=== PATIENT | female | born 1960 | race Two or more races ===

== ENCOUNTER 2016-07-16 18:14 | Emergency (ER) | payer MEDICAID ==
[~2016-07-16] VITALS: Ht 157.5 cm; Wt 91.6 kg
[2016-07-16 18:20] VITALS: BP 156/57
[2016-07-16 20:12] LABS: Magnesium 2.1 mg/dL (1.6-2.6)
== END 2016-07-16 20:58 | disposition left against medical advice (07) ==
LOC: ER 18:20
DX: R94.31 Abnormal electrocardiogram [ECG] [EKG] (principal); Z53.21 Procedure and treatment not carried out due to patient leaving prior to being seen by health care provider
CPT/HCPCS: 36415; 83735; 84484; 93005

== ENCOUNTER 2016-09-13 20:42 | Emergency (ER) | payer MEDICAID ==
[~2016-09-13] VITALS: Ht 157.5 cm; Wt 90.7 kg
[2016-09-13 20:54] VITALS: BP 155/78
== END 2016-09-13 23:21 | disposition left against medical advice (07) ==
LOC: ER 20:46
DX: R21 Rash and other nonspecific skin eruption (principal); Z53.21 Procedure and treatment not carried out due to patient leaving prior to being seen by health care provider

== ENCOUNTER 2021-01-14 14:52 | Emergency (ER) | payer MEDICAID ==
[~2021-01-14] VITALS: Ht 157.5 cm; Wt 88.0 kg
[~2021-01-14 14:52] MED LIST: CHOL20007 PO; DICL75TA2 PO; ESOM40CA39 PO; FERR-20 PO; LISI2.5T47 PO; MULT-927 PO
[2021-01-14 18:06] VITALS: BP 140/76
== END 2021-01-14 18:35 | disposition home or self-care (01) ==
LOC: ER 14:52
DX: S82.832A Other fracture of upper and lower end of left fibula, initial encounter for closed fracture (principal); I10 Essential (primary) hypertension; E11.9 Type 2 diabetes mellitus without complications; Z90.49 Acquired absence of other specified parts of digestive tract; Z90.710 Acquired absence of both cervix and uterus; Z79.899 Other long term (current) drug therapy; X50.1XXA Overexertion from prolonged static or awkward postures, initial encounter; Y93.89 Activity, other specified; Y92.89 Other specified places as the place of occurrence of the external cause; Y99.8 Other external cause status
CPT/HCPCS: 29515; 73600

== ENCOUNTER 2021-07-07 17:41 | Emergency (ER) | payer MEDICAID ==
[~2021-07-07] VITALS: Ht 157.5 cm; Wt 90.7 kg
[2021-07-07 19:35] LABS: Basophils # (auto) 0 10 ^3/uL (0-0.2); Basophils % (auto) 0.6 % (0.0-2.0); Eosinophils # (auto) 0.3 10 ^3/uL (0-0.8); Eosinophils % (auto) 3.3 % (0.0-7.0); Hematocrit 37.9 % (36.0-46.0); Hemoglobin 13.2 g/dL (12.2-16.2); Lymphocytes # (auto) 2.5 10 ^3/uL (0.4-5.4); Mean Corpuscular Hemoglobin 33.2 pg (28.0-32.0); Mean Corpuscular Hgb Conc. 34.9 g/dL (32.0-36.0); Monocytes # (auto) 0.4 10 ^3/uL (0-1.3); Monocytes % (auto) 5.5 % (0.0-12.0); Neutrophils # (auto) 4.5 10 ^3/uL (1.6-8.6); Neutrophils % (auto) 58.6 % (37.0-80.0); Nucleated Red Blood Cells % 0.1 %; Red Blood Cells 3.99 10^6/uL (4.0-5.20); Red Cell Distribution Width 13.5 % (11.8-14.3); White Blood Cell 7.7 10^3/uL (4.4-10.8)
[2021-07-07 19:57] LABS: Albumin 3.4 g/dL (3.4-5.0); Potassium 3.4 mmol/L (3.5-5.1)
[2021-07-07 20:01] LABS: BUN/Creatinine Ratio 18.3; Bilirubin, Total 0.5 mg/dL (0.2-1.0); Total Protein 7.4 g/dL (6.4-8.2)
[2021-07-07] MEDS ORDERED: AZIT1POW PO (21:38)
[2021-07-07] MEDS ORDERED: METH4PAK PO (21:38)
[2021-07-07 22:46] VITALS: BP 122/71
[2021-07-08 00:08] LABS: Urine Specific Gravity 1.034 (1.001-1.035)
[2021-07-08 00:09] LABS: Urine Blood Normal /uL (Negative)
[2021-07-08 00:12] LABS: Urine Bacteria NONE SEEN /hpf (None Seen); Urine WBC 1 /hpf (0 - 5)
== END 2021-07-07 22:46 | disposition home or self-care (01) ==
LOC: ER 17:41
DX: J20.9 Acute bronchitis, unspecified (principal); E11.9 Type 2 diabetes mellitus without complications; I10 Essential (primary) hypertension; Z90.49 Acquired absence of other specified parts of digestive tract; Z90.710 Acquired absence of both cervix and uterus; Z20.822 Contact with and (suspected) exposure to COVID-19
CPT/HCPCS: 36415; 71046; 80053; 81001; 83880; 84484; 85025; 93005

== ENCOUNTER 2021-08-10 20:21 | Emergency (ER) | payer MEDICAID ==
[~2021-08-10] VITALS: Ht 157.5 cm; Wt 90.7 kg
[2021-08-10 20:21] VITALS: BP 127/79
[~2021-08-10 20:21] MED LIST changes: +AZIT1POW PO; +METH4PAK PO
[2021-08-10 22:16] LABS: Urine Bacteria NONE SEEN /hpf (None Seen); Urine Blood 3+ /uL (Negative); Urine Specific Gravity 1.023 (1.001-1.035); Urine WBC 413 /hpf (0 - 5)
== END 2021-08-12 02:32 | disposition left against medical advice (07) ==
LOC: ER 20:21
DX: R30.0 Dysuria (principal); Z53.21 Procedure and treatment not carried out due to patient leaving prior to being seen by health care provider
CPT/HCPCS: 81001

== ENCOUNTER 2021-08-22 09:39 | Inpatient (IN) | payer MEDICAID ==
[~2021-08-22] VITALS: Ht 152.4 cm; Wt 87.8 kg
[2021-08-22 10:44] LABS: Basophils # (auto) 0 10 ^3/uL (0-0.2); Basophils % (auto) 0.5 % (0.0-2.0); Eosinophils # (auto) 0.1 10 ^3/uL (0-0.8); Eosinophils % (auto) 1.9 % (0.0-7.0); Hematocrit 41.2 % (36.0-46.0); Lymphocytes # (auto) 2.1 10 ^3/uL (0.4-5.4); Lymphocytes % (auto) 33.7 % (10.0-50.0); Mean Corpuscular Hemoglobin 32.1 pg (28.0-32.0); Mean Corpuscular Volume 94.6 fL (80.0-100.0); Monocytes # (auto) 0.4 10 ^3/uL (0-1.3); Monocytes % (auto) 6.3 % (0.0-12.0); Neutrophils # (auto) 3.6 10 ^3/uL (1.6-8.6); Neutrophils % (auto) 57.6 % (37.0-80.0); Nucleated Red Blood Cells % 0.1 %; Red Blood Cells 4.36 10^6/uL (4.0-5.20); Red Cell Distribution Width 13.6 % (11.8-14.3); White Blood Cell 6.3 10^3/uL (4.4-10.8)
[2021-08-22 10:56] LABS: Albumin 3.9 g/dL (3.4-5.0); BUN/Creatinine Ratio 16.9; Calcium 8.7 mg/dL (8.5-10.1); Magnesium 2.2 mg/dL (1.6-2.6); Potassium 3.6 mmol/L (3.5-5.1)
[2021-08-22 10:58] LABS: Bilirubin, Total 0.5 mg/dL (0.2-1.0); Total Protein 7.8 g/dL (6.4-8.2)
[2021-08-22] MEDS: ASPirin 81 mg TAB PO ONE ×2 (11:45→12:06)
[2021-08-22] MEDS ORDERED: ACETAMINOPHEN 325 MG TAB PO PRN (13:15)
[2021-08-22] MEDS ORDERED: PANTOPRAZOLE 40 MG TAB PO ONE (13:15)
[2021-08-22] MEDS ORDERED: NITROGLYCERIN 0.4 MG SL TAB SL PRN (13:15)
[2021-08-22] MEDS ORDERED: NAPROXEN 500 MG TAB PO ONE (13:15)
[2021-08-22] MEDS ORDERED: DOCUSATE SOD 100 MG CAP PO PRN (13:15)
[2021-08-22 13:26] LABS: Cholesterol 161 mg/dL (< 200)
[2021-08-22 13:28] LABS: HDL Cholesterol 38 mg/dL (40-59); LDL Cholesterol 102 mg/dL (< 100); Triglycerides 217 mg/dL (< 150)
[2021-08-22] MEDS ORDERED: HYDROcodone-ACET 5/325MG TAB PO ONE (13:30)
[2021-08-22] MEDS: HYDROcodone-ACET 5/325MG TAB PO PRN ×2 (15:52→20:27)
[2021-08-22] MEDS ORDERED: ATOR10TA PO (18:32)
[2021-08-22] MEDS ORDERED: METF-370 PO (18:32)
[2021-08-22] MEDS: FERROUS SULFATE 325mg EC TAB PO SCH (18:39)
[2021-08-22 22:00] VITALS: BP 117/56
[2021-08-23] VITALS (8 sets, daily range): BP systolic 107–144; BP diastolic 53–80
[2021-08-23] MEDS: HYDROcodone-ACET 5/325MG TAB PO PRN ×3 (01:47→12:50)
[2021-08-23] MEDS: MULTIPLE VITAMINS W/ MINERALS TAB PO SCH (09:39)
[2021-08-23] MEDS: LISINOPRIL 5 MG TAB PO SCH (09:42)
[2021-08-23] MEDS: CHOLECALCIFEROL (VITD3) 2,000 UNIT CAP/TAB PO SCH (09:43)
[2021-08-23] MEDS: FERROUS SULFATE 325mg EC TAB PO SCH ×2 (09:43→19:02)
[2021-08-23] MEDS ORDERED: ADENOSINE 58 MG in GIVE UN-DILUTED 0 ML IV ONE (10:15)
[2021-08-23] MEDS ORDERED: EMPA1TAB3 PO (10:48)
[2021-08-23] MEDS: MORPHINE SULFATE INJ 2 MG/ml SYRG IV PRN ×2 (13:01→22:00)
[2021-08-23] MEDS: HYDROcodone-ACET 10/325MG TAB PO PRN (17:24)
[2021-08-23] MEDS: ONDANSETRON HCL 4 MG/2 ML VIAL IV PRN (20:18)
[2021-08-24] MEDS: HYDROcodone-ACET 10/325MG TAB PO PRN ×3 (01:54→23:35)
[2021-08-24 05:00] VITALS: BP 94/51
[2021-08-24] MEDS: HYDROcodone-ACET 5/325MG TAB PO PRN (06:32)
[2021-08-24 08:00] VITALS: BP_SYST 101; BP_SYST 106; BP_DIAS 60
[2021-08-24] MEDS: FERROUS SULFATE 325mg EC TAB PO SCH (08:24)
[2021-08-24] MEDS: MULTIPLE VITAMINS W/ MINERALS TAB PO SCH (09:42)
[2021-08-24] MEDS: CHOLECALCIFEROL (VITD3) 2,000 UNIT CAP/TAB PO SCH (09:42)
[2021-08-24] MEDS: LISINOPRIL 5 MG TAB PO SCH (09:43)
[2021-08-24] MEDS: MORPHINE SULFATE INJ 2 MG/ml SYRG IV PRN (10:39)
[2021-08-24 11:59] VITALS: BP 116/53
[2021-08-24] MEDS: ONDANSETRON HCL 4 MG/2 ML VIAL IV PRN (12:39)
[2021-08-24] MEDS ORDERED: PANTOPRAZOLE 40 MG TAB PO ONE (13:15)
[2021-08-24] MEDS ORDERED: SUCRALFATE 1 GM/10 ML ORAL SUSP PO ONE (13:15)
[2021-08-24] MEDS ORDERED: DOCUSATE SOD 100 MG CAP PO ONE (13:45)
[2021-08-24 16:00] VITALS: BP 117/66
[2021-08-24] MEDS: DOCUSATE SOD 100 MG CAP PO SCH (20:56)
[2021-08-24] MEDS: LACTULOSE 20Gm/30ML SOLN PO SCH (20:56)
[2021-08-24 22:00] VITALS: BP 103/54
[2021-08-25 05:00] VITALS: BP 97/53
[2021-08-25] MEDS: HYDROcodone-ACET 10/325MG TAB PO PRN ×2 (06:04→20:22)
[2021-08-25 08:51] VITALS: BP 97/47
[2021-08-25] MEDS: LACTULOSE 20Gm/30ML SOLN PO SCH ×2 (09:06→20:21)
[2021-08-25] MEDS: DOCUSATE SOD 100 MG CAP PO SCH ×2 (09:07→20:22)
[2021-08-25] MEDS: MULTIPLE VITAMINS W/ MINERALS TAB PO SCH (09:07)
[2021-08-25] MEDS: CHOLECALCIFEROL (VITD3) 2,000 UNIT CAP/TAB PO SCH (09:07)
[2021-08-25] MEDS: PANTOPRAZOLE 40 MG TAB PO SCH (09:07)
[2021-08-25] MEDS: LISINOPRIL 5 MG TAB PO SCH (09:10)
[2021-08-25] MEDS ORDERED: KETOROLAC TROMETH 30 MG/ML 1ML VIAL IV ONE (12:15)
[2021-08-25 13:00] VITALS: BP 122/67
[2021-08-25 16:43] LABS: BUN/Creatinine Ratio 25.4; Calcium 9.5 mg/dL (8.5-10.1)
[2021-08-25 17:00] VITALS: BP 126/72
[2021-08-25] MEDS ORDERED: IOHEXOL 350 MG/ML 100ML IJ ONE (20:16)
[2021-08-25 22:00] VITALS: BP 138/60
[2021-08-26] MEDS: HYDROcodone-ACET 10/325MG TAB PO PRN ×2 (02:12→08:17)
[2021-08-26 04:58] LABS: Basophils # (auto) 0 10 ^3/uL (0-0.2); Basophils % (auto) 0.3 % (0.0-2.0); Eosinophils # (auto) 0.2 10 ^3/uL (0-0.8); Hematocrit 38.6 % (36.0-46.0); Hemoglobin 13.5 g/dL (12.2-16.2); Lymphocytes # (auto) 2.9 10 ^3/uL (0.4-5.4); Lymphocytes % (auto) 34.1 % (10.0-50.0); Mean Corpuscular Hemoglobin 33.5 pg (28.0-32.0); Mean Corpuscular Hgb Conc. 35.1 g/dL (32.0-36.0); Mean Corpuscular Volume 95.3 fL (80.0-100.0); Monocytes # (auto) 0.4 10 ^3/uL (0-1.3); Monocytes % (auto) 4.7 % (0.0-12.0); Neutrophils % (auto) 58.9 % (37.0-80.0); Nucleated Red Blood Cells % 0.1 %; Red Blood Cells 4.05 10^6/uL (4.0-5.20); Red Cell Distribution Width 13.8 % (11.8-14.3); White Blood Cell 8.5 10^3/uL (4.4-10.8)
[2021-08-26 05:00] VITALS: BP 114/56
[2021-08-26 05:15] LABS: Potassium 3.1 mmol/L (3.5-5.1)
[2021-08-26 05:22] LABS: Albumin 3.4 g/dL (3.4-5.0); Bilirubin, Total 0.5 mg/dL (0.2-1.0); Calcium 8.4 mg/dL (8.5-10.1); Total Protein 7.1 g/dL (6.4-8.2)
[2021-08-26 08:58] VITALS: BP 92/49
[2021-08-26] MEDS: CHOLECALCIFEROL (VITD3) 2,000 UNIT CAP/TAB PO SCH (09:27)
[2021-08-26] MEDS: DOCUSATE SOD 100 MG CAP PO SCH (09:27)
[2021-08-26] MEDS: LACTULOSE 20Gm/30ML SOLN PO SCH (09:27)
[2021-08-26] MEDS: PANTOPRAZOLE 40 MG TAB PO SCH (09:27)
[2021-08-26] MEDS: MULTIPLE VITAMINS W/ MINERALS TAB PO SCH (09:27)
[2021-08-26] MEDS: LISINOPRIL 5 MG TAB PO SCH (09:28)
[2021-08-26] MEDS ORDERED: KETOROLAC TROMETH 30 MG/ML 1ML VIAL IV ONE (10:45)
[2021-08-26] MEDS ORDERED: KETO10TA PO (10:48)
[2021-08-26] MEDS ORDERED: POTASSIUM CHL 20 Meq TABLET PO ONE (11:45)
[2021-08-26 11:46] VITALS: BP 92/49
[2021-08-26 12:40] VITALS: BP 119/55
== END 2021-08-26 13:45 | disposition home or self-care (01) | DRG 203 ==
LOC: ER 09:39 → EDBD 09:39 → TELE 13:13 → TELE-CENTR 17:06
PROVIDERS: ADMIT Internal Medicine; ATTEND Internal Medicine
DX: M94.0 Chondrocostal junction syndrome [Tietze] (principal); E11.9 Type 2 diabetes mellitus without complications; E66.9 Obesity, unspecified; M79.602 Pain in left arm; Z20.822 Contact with and (suspected) exposure to COVID-19; I10 Essential (primary) hypertension; R00.1 Bradycardia, unspecified; Z87.891 Personal history of nicotine dependence; Z90.49 Acquired absence of other specified parts of digestive tract; Z90.710 Acquired absence of both cervix and uterus; Z68.37 Body mass index [BMI] 37.0-37.9, adult; Z80.0 Family history of malignant neoplasm of digestive organs; Z79.84 Long term (current) use of oral hypoglycemic drugs
CPT/HCPCS: 36415; 71045; 71275; 72125; 80048; 80053; 80061; 83735; 84443; 84484; 85025; 85379; 93005; 93306; G0378; J0153; J1885; J2405

== ENCOUNTER 2023-05-05 12:50 | Inpatient (IN) | payer MEDICAID ==
[~2023-05-05] VITALS: Ht 157.5 cm; Wt 98.5 kg
[~2023-05-05 12:50] MED LIST changes: +ATOR10TA PO; -AZIT1POW PO; -DICL75TA2 PO; +EMPA1TAB3 PO; -FERR-20 PO; +KETO10TA PO; +METF-370 PO; -METH4PAK PO; -MULT-927 PO
[2023-05-05 13:54] LABS: Basophils # (auto) 0 10 ^3/uL (0-0.2); Basophils % (auto) 0.2 % (0.0-2.0); Eosinophils # (auto) 0 10 ^3/uL (0-0.8); Eosinophils % (auto) 0.1 % (0.0-7.0); Hematocrit 42.9 % (36.0-46.0); Hemoglobin 14.6 g/dL (12.2-16.2); Lymphocytes # (auto) 1.2 10 ^3/uL (0.4-5.4); Lymphocytes % (auto) 7.6 % (10.0-50.0); Mean Corpuscular Hemoglobin 32.3 pg (28.0-32.0); Mean Corpuscular Volume 94.9 fL (80.0-100.0); Monocytes # (auto) 0.6 10 ^3/uL (0-1.3); Monocytes % (auto) 3.6 % (0.0-12.0); Neutrophils # (auto) 14.5 10 ^3/uL (1.6-8.6); Neutrophils % (auto) 88.5 % (37.0-80.0); Nucleated Red Blood Cells % 0.1 %; Red Blood Cells 4.52 10^6/uL (4.0-5.20); Red Cell Distribution Width 13.8 % (11.8-14.3); White Blood Cell 16.4 10^3/uL (4.4-10.8)
[2023-05-05 14:02] LABS: Alanine Aminotransferase 32 U/L (7-40); Alkaline Phosphatase 86 U/L (46-116)
[2023-05-05 14:03] LABS: Albumin 4.6 g/dL (3.2-4.8); Anion Gap 8 (5-15); Aspartate Aminotransferase 28 U/L (13-40); BUN/Creatinine Ratio 19.4 (10.0-20.0); Bilirubin, Total 1.4 mg/dL (0.2-1.0); Blood Urea Nitrogen 13 mg/dL (9-23); Calcium 9.3 mg/dL (8.5-10.1); Carbon Dioxide 24 mmol/L (20-30); Chloride 105 mmol/L (98-107); Glucose 123 mg/dL (74-106); Potassium 3.8 mmol/L (3.5-5.1); Sodium 137 mmol/L (136-145); Total Protein 7.4 g/dL (5.7-8.2)
[2023-05-05] MEDS: IPRATROPIUM BROM 0.5 MG/2.5ML INH SOL NEB ONE (15:26)
[2023-05-05] MEDS: ALBUTEROL SULF 2.5 MG/0.5ML(0.5%) NEB SOLN NEB ONE (15:27)
[2023-05-05 15:28] LABS: Base Excess 0.3 mmol/L (-2.0-2.0)
[2023-05-05 15:28] LABS: COVID19 ANTIGEN SOFIA FIA NEGATIVE (NEGATIVE); Rapid Influenza A Negative (Negative); Rapid Influenza B Negative (Negative)
[2023-05-05] MEDS: cefTRIAXone 1GM/50ML D5W 50 ML IV ONE (17:01)
[2023-05-05] MEDS: ACETAMINOPHEN 325 MG TAB PO ONE (17:01)
[2023-05-05] MEDS: SODIUM CHLORIDE 0.9% 1,000 ML IV ONE (17:01)
[2023-05-05] MEDS ORDERED: ONDANSETRON HCL 4 MG/2 ML VIAL IV PRN (17:45)
[2023-05-05] MEDS ORDERED: DEXTROSE (50%) 50ML SYRG IV PRN (17:45)
[2023-05-05] MEDS ORDERED: NITROGLYCERIN 0.4 MG SL TAB SL PRN (17:45)
[2023-05-05] MEDS ORDERED: cefTRIAXone 1GM/50ML D5W 50 ML IV ONE (17:45)
[2023-05-05] MEDS: SODIUM CHLORIDE 0.9% 1,000 ML IV SCH (18:41)
[2023-05-05 19:19] LABS: INR 1.23 (0.9-1.15); Prothrombin Time 12.7 sec (9.3-11.8)
[2023-05-05] MEDS: IOHEXOL 350 MG/ML 100ML IJ ONE (21:36)
[2023-05-05] MEDS: ENOXAPARIN SOD 100 MG/1 ML SYRINGE SC SCH (21:36)
[2023-05-05] MEDS: ACETAMINOPHEN 325 MG TAB PO PRN (21:37)
[2023-05-05] MEDS: METOPROLOL TARTRATE 25 MG TAB PO SCH (23:28)
[2023-05-06] VITALS (12 sets, daily range): BP systolic 99–121; BP diastolic 54–69; PULSE 65–88; RESP 16–22; TEMP 97.8–99.5; O2SAT 95–100
[2023-05-06 02:00] LABS: Basophils # (auto) 0.1 10 ^3/uL (0-0.2); Basophils % (auto) 0.3 % (0.0-2.0); Eosinophils # (auto) 0 10 ^3/uL (0-0.8); Eosinophils % (auto) 0.3 % (0.0-7.0); Hemoglobin 12.3 g/dL (12.2-16.2); Lymphocytes # (auto) 2.5 10 ^3/uL (0.4-5.4); Lymphocytes % (auto) 17.1 % (10.0-50.0); Mean Corpuscular Hemoglobin 31.9 pg (28.0-32.0); Mean Corpuscular Hgb Conc. 33.2 g/dL (32.0-36.0); Monocytes # (auto) 0.6 10 ^3/uL (0-1.3); Monocytes % (auto) 4.2 % (0.0-12.0); Neutrophils # (auto) 11.7 10 ^3/uL (1.6-8.6); Neutrophils % (auto) 78.1 % (37.0-80.0); Red Blood Cells 3.85 10^6/uL (4.0-5.20); Red Cell Distribution Width 13.9 % (11.8-14.3); White Blood Cell 14.9 10^3/uL (4.4-10.8)
[2023-05-06 02:12] LABS: Alanine Aminotransferase 25 U/L (7-40); Albumin 3.9 g/dL (3.2-4.8); Alkaline Phosphatase 68 U/L (46-116); Anion Gap 5 (5-15); Aspartate Aminotransferase 22 U/L (13-40); BUN/Creatinine Ratio 17.7 (10.0-20.0); Blood Urea Nitrogen 11 mg/dL (9-23); Calcium 8.5 mg/dL (8.5-10.1); Carbon Dioxide 25 mmol/L (20-30); Chloride 110 mmol/L (98-107); Glucose 122 mg/dL (74-106); LDL Cholesterol 78 mg/dL (< 100); Potassium 3.2 mmol/L (3.5-5.1); Sodium 140 mmol/L (136-145); Triglycerides 84 mg/dL (< 150)
[2023-05-06 02:13] LABS: Bilirubin, Total 0.9 mg/dL (0.2-1.0); Cholesterol 131 mg/dL (< 200); HDL Cholesterol 42 mg/dL (40-59); Total Protein 6.4 g/dL (5.7-8.2)
[2023-05-06] MEDS: MORPHINE SULFATE 4 MG/ML SYR/VIAL IV PRN (06:01)
[2023-05-06] MEDS: ACCU-CHEK COMFORT CURVE STRIP VI SCH (06:02)
[2023-05-06] MEDS: InsuLIN REG 1unit/0.01ml Soln (100units/ml) SC SCH (06:03)
[2023-05-06] MEDS: ASPirin 81 mg TAB PO SCH (08:53)
[2023-05-06] MEDS: CHOLECALCIFEROL (VITD3) 1,000UNIT=25mCg TAB PO SCH (08:53)
[2023-05-06] MEDS: DOCUSATE SOD 100 MG CAP PO SCH (08:53)
[2023-05-06] MEDS: LISINOPRIL 5 MG TAB PO SCH (08:54)
[2023-05-06] MEDS: cefTRIAXone 1GM/50ML D5W 50 ML IV SCH (08:54)
[2023-05-06] MEDS: PANTOPRAZOLE 40 MG/10 ML VIAL INJ IV SCH (08:54)
[2023-05-06] MEDS ORDERED: cefTRIAXone 1GM/50ML D5W 50 ML IV SCH (09:00)
[2023-05-06] MEDS: SODIUM CHLORIDE 0.9% 1,000 ML IV SCH (11:00)
[2023-05-06] MEDS: IPRATROPIUM BROM 0.5 MG/2.5ML INH SOL NEB SCH (12:00)
[2023-05-06] MEDS: ALBUTEROL SULF 2.5 MG/0.5ML(0.5%) NEB SOLN NEB SCH (12:00)
[2023-05-06] MEDS: POTASSIUM CHL 20 Meq TABLET PO ONE (12:27)
[2023-05-06] MEDS: AZITHROMYCIN 500MG/ 250ML 250 ML IV ONE (12:28)
[2023-05-06] MEDS: ATORVASTATIN 20 MG TAB PO SCH (21:53)
[2023-05-06] MEDS ORDERED: ATORVASTATIN 20 MG TAB PO SCH (22:00)
[2023-05-06] MEDS: HYDROcodone-ACET 5/325MG TAB PO ONE (23:00)
[2023-05-07] VITALS (15 sets, daily range): BP systolic 104–129; BP diastolic 52–80; PULSE 63–78; RESP 16–20; TEMP 98–99.4; O2SAT 93–100
[2023-05-07 06:27] LABS: Anion Gap 6 (5-15); Basophils # (auto) 0 10 ^3/uL (0-0.2); Basophils % (auto) 0.3 % (0.0-2.0); Carbon Dioxide 26 mmol/L (20-30); Chloride 111 mmol/L (98-107); Eosinophils # (auto) 0.3 10 ^3/uL (0-0.8); Eosinophils % (auto) 2.8 % (0.0-7.0); Hematocrit 35.2 % (36.0-46.0); Hemoglobin 11.9 g/dL (12.2-16.2); Lymphocytes # (auto) 2.2 10 ^3/uL (0.4-5.4); Lymphocytes % (auto) 23.4 % (10.0-50.0); Mean Corpuscular Hemoglobin 32.6 pg (28.0-32.0); Mean Corpuscular Hgb Conc. 33.8 g/dL (32.0-36.0); Mean Corpuscular Volume 96.5 fL (80.0-100.0); Monocytes # (auto) 0.6 10 ^3/uL (0-1.3); Monocytes % (auto) 5.9 % (0.0-12.0); Neutrophils # (auto) 6.5 10 ^3/uL (1.6-8.6); Neutrophils % (auto) 67.6 % (37.0-80.0); Potassium 3.9 mmol/L (3.5-5.1); Red Blood Cells 3.64 10^6/uL (4.0-5.20); Sodium 143 mmol/L (136-145); White Blood Cell 9.6 10^3/uL (4.4-10.8)
[2023-05-07 06:29] LABS: Calcium 8.8 mg/dL (8.5-10.1)
[2023-05-07 06:34] LABS: BUN/Creatinine Ratio 13.2 (10.0-20.0); Blood Urea Nitrogen 9 mg/dL (9-23); Glucose 100 mg/dL (74-106)
[2023-05-07 08:41] LABS: Hepatitis B Surface Antigen Negative (Negative)
[2023-05-07] MEDS: AZITHROMYCIN 500MG/ 250ML 250 ML IV SCH (10:12)
[2023-05-07] MEDS: POTASSIUM CHL 20 Meq TABLET PO ONE (12:51)
[2023-05-07] MEDS: FUROSEMIDE 20 MG/2 ML VIAL IV ONE (12:51)
[2023-05-07 13:16] LABS: Urine Bacteria NONE SEEN /hpf (None Seen); Urine Blood TRACE /uL (Negative); Urine Clarity Clear (Clear); Urine Color Colorless (Yellow); Urine Protein, UAD TRACE (Negative); Urine Specific Gravity 1.013 (1.001-1.035); Urine Urobilinogen Normal (Negative); Urine WBC <1 /hpf (0 - 5); Urine pH 7.5 (5.0-8.0)
[2023-05-07] MEDS ORDERED: LISI10TA34 PO (16:37)
[2023-05-07] MEDS ORDERED: LIDO1PAD55 TOP (16:39)
[2023-05-08] VITALS (17 sets, daily range): BP systolic 107–139; BP diastolic 58–139; PULSE 60–101; RESP 16–20; TEMP 97.4–98.4; O2SAT 92–99
[2023-05-08] MEDS: AZITHROMYCIN 500MG/ 250ML 250 ML IV ONE (18:13)
[2023-05-09] VITALS (13 sets, daily range): BP systolic 92–124; BP diastolic 59–82; PULSE 65–82; RESP 16–20; TEMP 98–98.4; O2SAT 91–98
[2023-05-09] MEDS: AZITHROMYCIN 500MG/ 250ML 250 ML IV SCH (09:33)
[2023-05-09] MEDS: guaiFENesin-CODEINE Liq 5 ML UD PO PRN (14:41)
[2023-05-10] VITALS (14 sets, daily range): BP systolic 108–134; BP diastolic 55–76; PULSE 68–92; RESP 14–20; TEMP 98–98.9; O2SAT 92–99
[2023-05-11] VITALS (13 sets, daily range): BP systolic 110–135; BP diastolic 55–76; PULSE 66–85; RESP 16–20; TEMP 97.8–98.2; O2SAT 89–99
[2023-05-11] MEDS: AZITHROMYCIN 250 MG TAB PO SCH (10:03)
[2023-05-11 10:07] LABS: Chloride 105 mmol/L (98-107); Potassium 3.5 mmol/L (3.5-5.1); Sodium 139 mmol/L (136-145)
[2023-05-11 10:08] LABS: Anion Gap 5 (5-15); Calcium 9.3 mg/dL (8.5-10.1); Carbon Dioxide 29 mmol/L (20-30)
[2023-05-11 10:13] LABS: BUN/Creatinine Ratio 15.7 (10.0-20.0); Blood Urea Nitrogen 11 mg/dL (9-23); Glucose 150 mg/dL (74-106)
[2023-05-11 10:25] LABS: Basophils # (auto) 0 10 ^3/uL (0-0.2); Basophils % (auto) 0.7 % (0.0-2.0); Eosinophils # (auto) 0.3 10 ^3/uL (0-0.8); Eosinophils % (auto) 4.5 % (0.0-7.0); Hematocrit 38.6 % (36.0-46.0); Hemoglobin 12.9 g/dL (12.2-16.2); Lymphocytes # (auto) 2.2 10 ^3/uL (0.4-5.4); Lymphocytes % (auto) 31.4 % (10.0-50.0); Mean Corpuscular Hemoglobin 32.3 pg (28.0-32.0); Mean Corpuscular Hgb Conc. 33.4 g/dL (32.0-36.0); Mean Corpuscular Volume 96.7 fL (80.0-100.0); Monocytes # (auto) 0.4 10 ^3/uL (0-1.3); Monocytes % (auto) 6.1 % (0.0-12.0); Neutrophils % (auto) 57.3 % (37.0-80.0); Red Cell Distribution Width 13.9 % (11.8-14.3); White Blood Cell 6.9 10^3/uL (4.4-10.8)
[2023-05-11] MEDS ORDERED: AZIT-81 PO (12:01)
[2023-05-11] MEDS ORDERED: GUAISYP6 PO ×2 (12:13→12:19)
[2023-05-11] MEDS ORDERED: METH4PAK PO (12:14)
[2023-05-11] MEDS ORDERED: GUAI100S6 PO ×2 (12:14→12:15)
[2023-05-11] MEDS ORDERED: GUAI-41 PO (12:22)
== END 2023-05-11 14:15 | disposition home or self-care (01) | DRG 720 ==
LOC: ER 12:50 → TELE 17:52 → TELE-WESTW 23:50 → WEST WING 05-06 15:21
PROVIDERS: ADMIT Nurse Practitioner Family; ATTEND Internal Medicine
DX: A41.9 Sepsis, unspecified organism (principal); J96.01 Acute respiratory failure with hypoxia; J15.69 Pneumonia due to other Gram-negative bacteria; E11.65 Type 2 diabetes mellitus with hyperglycemia; E66.9 Obesity, unspecified; E78.5 Hyperlipidemia, unspecified; J15.9 Unspecified bacterial pneumonia; I10 Essential (primary) hypertension; Z20.822 Contact with and (suspected) exposure to COVID-19; G25.81 Restless legs syndrome; Z90.710 Acquired absence of both cervix and uterus; Z90.49 Acquired absence of other specified parts of digestive tract; Z68.39 Body mass index [BMI] 39.0-39.9, adult
CPT/HCPCS: 36415; 36600; 70450; 71045; 71046; 71275; 80048; 80053; 80061; 80329; 81001; 82805; 82962; 83036; 83605; 83735; 83880; 84100; 84443; 84484; 85025; 85379; 85610; 86803; 87040; 87340; 87426; 87804; 93306; 94640; 96361; 96365; C9113; G0378; J1815

== ENCOUNTER 2024-04-15 09:24 | Inpatient (IN) | payer MEDICAID, OTHER ==
[2024-04-15] VITALS (10 sets, daily range): BP systolic 101–111; BP diastolic 49–60; PULSE 71–82; RESP 16–19; TEMP 97.6–98.8; O2SAT 92–100
[~2024-04-15] VITALS: Ht 157.5 cm; Wt 84.6 kg
[~2024-04-15 09:24] MED LIST changes: +AZIT-185 PO; -ESOM40CA39 PO; +GUAI-41 PO; +GUAI100S6 PO; +GUAISYP6 PO; -KETO10TA PO; +LIDO1PAD55 TOP; +LISI10TA34 PO; -LISI2.5T47 PO; +METH4PAK PO
--- NOTE | 2024-04-15 09:45 | ECG ---
[facility] Test Date: 2024-04-15 Test Time: 09:39:19 Pat Name: MICK KING Department: ER Room: 0292 Gender: F Molded Parts Inspector: ROSALINDA : 1960 Requested By: MARILEE CORBIN Order Number: [id number] Reading MD: Gautam Zaragoza Measurements Intervals [place] Rate: 106 P: 68 [place]: 125 QRS: -78 QRSD: 78 T: 55 QT: 334 QTc: 444 Interpretive Statements Sinus tachycardia Left anterior fascicular block Abnormal R-wave progression, late transition Baseline wander in lead(s) V2 Electronically Signed On 04-18-2024 8:21:29 PST by Gautam Zaragoza Please click the below link to view image of tracing.
--- NOTE | 2024-04-15 10:14 | DVH ---
CHEST RADIOGRAPH Indication: COUGH Technique: Frontal and lateral view of the chest was obtained Comparison: XY CHEST TWO VIEWS ROUTINE on DOS: 05/05/23, CS2 on DOS: 08/25/21, CHEST TWO VIEWS ROUTINE o n DOS: 07/07/21, CXR2 on DOS: 07/07/21 FINDINGS: Lines and Tubes: None Lungs: Right upper lobe pneumonia Pleura: No effusion. No pneumothorax. Cardiomediastinal contours: Unremarkable Bones: Unremarkable IMPRESSION: Right upper lobe pneumonia
--- NOTE | 2024-04-15 10:44 | ED.PDOC ---
SOB-HPI HPI Comments A 63 YEAR OLD FEMALE PRESENTS TO THE ED WITH COMPLAINT OF FLU-LIKE SYMPTOMS. PATIENT STATES SHE HAS BEEN EXPERIENCING COUGH, CONGESTION, UPPER CHEST WALL PAIN, BODY ACHES, CHILLS, AND HEADACHE FOR THE PAST 3 DAYS. PATIENT NOTES SHE HAS A HISTORY OF FREQUENT PNEUMONIA IN THE PAST. PATIENT DENIES FEVER, CHILLS, SHORTNESS OF BREATH, ABDOMINAL PAIN, NAUSEA, VOMITING, OR OTHER COMPLAINTS. NO OTHER SYMPTOMS OR MODIFYING FACTORS AT THIS TIME. PATIENT IS ALERT, ORIENTED X 4, AND HAS STEADY GAIT. Chief Complaint: Flu like Time Seen by MD: 09:40 Primary Care Provider: ? Reviewed notes: Nurses Notes, Medications, Allergies Information Source: Patient Mode of Arrival: Ambulatory Severity: Moderate Timing: Days Duration: Since onset, Days Context: Spontaneous Onset PE Risk Factors: None History of: Recent URI Prehospital treatment: None Modifying Factors: Nothing Associated Signs and Symptoms: Cough, Nasal Congestion If cough with SOB: Productive Past Medical History PAST MEDICAL HISTORY: DM, HTN Past Medical History (Other): PNEUMONIA Surgical History: Appendectomy, Cholecystectomy, , Hysterectomy WAREHOUSE LOGISTICS COORDINATOR History: No Pertinent WAREHOUSE LOGISTICS COORDINATOR History Family History Family History: Reviewed,noncontributory to illness, Family hx of Cancer Social History Smoker: Non-Smoker Alcohol: Rarely Drugs: Denies Drug Use Lives In: Home Constitutional: reports: chills, fever (ON AND OFF ); denies: diaphoresis, fatigue, malaise, sweats, weakness, others EENTM: reports: nose congestion; denies: blurred vision, double vision, ear bleeding, ear discharge, ear drainage, ear pain, ear ringing, eye pain, eye redness, hearing loss, mouth pain, mouth swelling, nasal discharge, nose bleeding, nose pain, photophobia, tearing, throat pain, throat swelling, voice changes, others Respiratory: reports: cough; denies: hemoptysis, orthopnea, SOB at rest, shortness of breath, SOB with excertion, stridor, wheezing, others Cardiovascular: denies: chest pain, dizzy spells, diaphoresis, Dyspnea on exertion, edema, irregular heart beat, left arm pain, lightheadedness, palpitations, PND, syncope, others Gastrointestinal: denies: abdomen distended, abdominal pain, blood streaked bowels, constipated, diarrhea, dysphagia, difficulty swallowing, hematemesis, melena, nausea, poor appetite, poor fluid intake, rectal bleeding, rectal pain, vomiting, others Genitourinary: denies: abnormal vagina bleeding, burning, dyspareunia, dysuria, flank pain, frequency, hematuria, incontinence, pain, , vagina dis charge, urgency, others Neurological: denies: dizziness, fainting, headache, left sided numbness, left sided weakness, numbness, paresthesia, pre-existing deficit, right sided numbness, right sided weakness, seizure, speech problems, tingling, tremors, weakness, others Musculoskeletal: reports: muscle pain; denies: back pain, gout, joint pain, joint swelling, muscle stiffness, neck pain, others Integumetry: denies: bruises, change in color, change in hair/nails, dryness, laceration, lesions, lumps, rash, wounds, others Allergic/Immunocompromised: denies: Difficulty Healing, Frequent Infections, Hives, Itching, others Hematologic/Lymphatic: denies: anemia, blood clots, easy bleeding, easy bruising, swollen glands, others Endocrine: denies: excessive hunger, excessive sweating, excessive thirst, excessive urination, flushing, intolerance to cold, intolerance to heat, unexplained weight gain, unexplained weight loss, others Psychiatric: denies: anxiety, bipolar disorder, depression, hopeless, panic disorder, schizophrenia, sleepless, suicidal, others All Other Systems: Reviewed and Negative Physical Exam General Appearance: Mild Distress, Obese, Other (ANXIOUS ) HEENT: Normal ENT Inspection, PERRL/EOMI, Pharynx Normal, TMs Normal Neck: Full Range of Motion, Non-Tender, Normal, Normal Inspection Respiratory: Decreased Breath Sounds, Expiration, No Accessory Muscle Use, No Respiratory Distress, Rhonchi, Other (TENDERNESS RIGHT UPPER CHEST WALL. ) Cardiovascular: No Edema, No JVD, No Murmur, No Gallop, Normal Peripheral Pulses, Regular Rate/Rhythm Breast Exam: Deferred Gastrointestinal: No Organomegaly, Non Tender, No Pulsatile Mass, Normal Bowel Sounds, Soft Genitalia: Deferred Pelvic: Deferred Rectal: Deferred Extremities: No calf tenderness, Normal capillary refill, Normal inspection, Normal range of motion, Non-tender, No pedal edema Musculoskeletal : Apperance: Normal Neurologic: Alert, sound assistant II-XII nml as Tested, No Motor Deficits, Normal Affect, Normal Mood, No Sensory Deficits Cerebellar Function: Normal Reflexes: Normal Skin: Dry, Normal Color, Warm Peripheral Pulses: 2+ carotid (R), 2+ carotid (L) Lymphatic: No Adenopathy EKG EKG : Pulse Rate (adult): 106 [place]: Normal Block: None Hypertrophy: None ST: Normal Was a procedure done? Was a procedure done?: No Differential Dx Differential Diagnosis: Anxiety, Bronchitis, Pneumonia, Sinusitis, Allergic Rhinitis, Otitis Media, Pharyngitis, URI X-Ray, Labs, Meds, VS Vital Signs Date Time Temp Pulse Resp B/P (MAP) Pulse Ox O2 Delivery O2 Flow Rate FiO2 04/15/24 10:44 106 04/15/24 10:26 108 20 95 Room Air 04/15/24 10:26 99.9 108 20 128/52 (77) 95 99.9 04/15/24 09:39 106 04/15/24 09:30 99.9 108 20 128/52 (77) 95 Lab Test 04/15/24 13:13 04/15/24 11:01 04/15/24 10:48 04/15/24 09:34 Range/Units Lactic Acid Level Pending 2.1 *H 0.4-2.0 mmol/L Urine Color Light-orange Yellow Urine Clarity Clear Clear Urine pH 5.5 5.0-9.0 Urine Specific [place] 1.037 H 1.001-1.035 Urine Protein 2+ H Negative Urine Ketones 3+ H Negative Urine Blood 3+ H Negative /uL Urine Nitrite Negative Negative Urine Bilirubin Negative Negative Urine Urobilinogen Normal Negative mg/dL Urine Leukocyte Esterase Negative Negative /uL Urine RBC 8 0 - 4 /hpf Urine Microscopic WBC 6 H 0-5 /HPF Urine Squamous Epithelial Cells Few <5 /hpf Urine Bacteria None seen None Seen /hpf Urine Mucus Few None Seen Urine Yeast (Budding) Occasional None Seen /hpf Urine Glucose 4+ H Normal mg/dL SARS-CoV-2 Antigen (Rapid) Negative NEGATIVE White Blood Count 20.8 H 4.4-10.8 10^3/uL Red Blood Count 4.49 4.0-5.20 10^6/uL Hemoglobin 14.3 12.2-16.2 g/dL Hematocrit 42.3 36.0-46.0 % Mean Corpuscular Volume 94.2 80.0-100.0 fL Mean Corpuscular Hemoglobin 32.0 28.0-32.0 pg Mean Corpuscular Hemoglobin Concent 33.9 32.0-36.0 g/dL Red Cell Distribution Width 13.7 11.8-14.3 % Platelet Count 163 140-450 10^3/uL Mean Platelet Volume 9.6 6.9-10.8 fL Neutrophils (%) (Auto) 88.7 H 37.0-80.0 % Lymphocytes (%) (Auto) 5.5 L 10.0-50.0 % Monocytes (%) (Auto) 5.0 0.0-12.0 % Eosinophils (%) (Auto) 0.0 0.0-7.0 % Basophils (%) (Auto) 0.8 0.0-2.0 % Neutrophils # (Auto) 18.5 H 1.6-8.6 10 ^3/uL Lymphocytes # (Auto) 1.2 0.4-5.4 10 ^3/uL Monocytes # (Auto) 1.0 0-1.3 10 ^3/uL Eosinophils # (Auto) 0 0-0.8 10 ^3/uL Basophils # (Auto) 0.2 0-0.2 10 ^3/uL Nucleated Red Blood Cells 0.1 % Sodium Level 135 L 136-145 mmol/L Potassium Level 3.5 3.5-5.1 mmol/L Chloride Level 101 98-107 mmol/L Carbon Dioxide Level 22 20-31 mmol/L Anion Gap 12 5-15 Blood Urea Nitrogen 19 9-23 mg/dL Creatinine 0.75 0.550-1.02 mg/dL Glomerular Filtration Rate Calc 89 >90 mL/min BUN/Creatinine Ratio 25.3 H 10.0-20.0 Serum Glucose 153 H 74-106 mg/dL Hemoglobin A1c Pending Calcium Level 10.1 8.7-10.4 mg/dL Troponin I High Sensitivity 4 </=34 ng/L POC Glucose 149 H 70-106 mg/dl Current Medications Medications (Trade) Dose Ordered Sig/Venkata Route Start Time Stop Time Status Last Admin Sodium Chloride 1,000 ml @ 1,000 mls/hr Q1H ONCE IV 04/15/24 10:45 04/15/24 11:44 DC 04/15/24 11:06 CHEST RADIOGRAPH Indication: COUGH Technique: Frontal and lateral view of the chest was obtained Comparison: XY CHEST TWO VIEWS ROUTINE on DOS: 05/05/23, CS2 on DOS: 08/25/21, CHEST TWO VIEWS ROUTINE on DOS: 07/07/21, CXR2 on DOS: 07/07/21 FINDINGS: Lines and Tubes: None Lungs: Right upper lobe pneumonia Pleura: No effusion. No pneumothorax. Cardiomediastinal contours: Unremarkable Bones: Unremarkable IMPRESSION: Right upper lobe pneumonia ATED BY: CARLYLE KENNEDY MD DICTATED DATE/TIME: 04/15/24 101 SIGNED BY: CARLYLE KENNEDY MD SIGNED DATE/TIME: 04/15/24 101 CC: X-Ray, Labs, Meds, VS Comment EXTERNAL MEDICAL RECORDS REVIEWED: [NONE] INDEPENDENT HISTORIANS: [NONE] SOCIAL DETERMINANTS OF HEALTH: [NONE] LABS ORDERED: CBC, BMP, UA, LACTIC ACID W/REFLEX, BLOOD CULTURE REVIEWED AND INTERPRETED RESULTS: WBC 20.8, LACTIC ACID 2.1, KETONES 3+, BLOOD 3+, PROTEIN 3+, UGLU 4+ IMAGING ORDERED: XR CHEST TREATMENTS ORDERED: ROCEPHIN 1 G IV, AZITHROMYCIN 500 MG IV, NS 1 L IV PROCEDURES PERFORMED: NONE CRITICAL CARE TIME: NONE I HAVE DISCUSSED THE PATIENT WITH THE ATTENDING PHYSICIAN DR. SANTA AND HE AGREES WITH THE PATIENT'S PLAN OF CARE. UPON MY PHYSICAL EXAMINATION, THE PATIENT HAD DIMINISHED BREATH SOUNDS UPON AUSCULTATION, BUT WAS NOT IN ANY ACUTE RESPIRATORY DISTRESS AT THIS TIME. MY DIFFERENTIAL DIAGNOSIS INCLUDES, URI, BRONCHITIS, PNEUMONIA, TONSILLITIS, PHARYN GITIS, SINUSITIS, OTITIS MEDIA, VIRAL SYNDROME. A CHEST X-RAY WAS DONE FOR THE PATIENT WHICH REVEALED RIGHT UPPER LOBE PNEUMONIA. LABS WERE DONE FOR THE PATIENT WHICH REVEALED AN ELEVATED WHITE BLOOD COUNT OF 20.8, LACTIC ACID OF 2.1, KETONES 3+ IN HER URINE, BLOOD 3+ IN HER URINE, AND URINE GLUCOSE 4+ IN HER URINE. PATIENT WAS MEDICATED HERE IN THE ED WITH 1 G ROCEPHIN IV, AZITHROMYCIN 500 MG IV, AND 1 L NORMAL SALINE IV. DUE TO THE PATIENT'S RIGHT UPPER LOBE PNEUMONIA AND HER MEDICAL HISTORY, I HAVE DETERMINED THE PATIENT NEEDS TO BE ADMITTED FOR FURTHER TREATMENT AND EVALUATION. THE ON-CALL ADMITTING PHYSICIAN WILL BE CONTACTED FOR ADMISSION OF THIS PATIENT. Images Reviewed?: Images reviewed and evaluated by me Time of 1ST Reevaluation: 12:30 Reevaluation 1ST: Improved Patient Education/Counseling: Diagnosis, Treatment Family Education/Counseling: Diagnosis, Treatment Departure 1 Departure Time of Disposition: 12:30 Impression: Primary Impression: Right upper lobe pneumonia Qualified Codes: J18.9 - Pneumonia, unspecified organism Disposition: ADMITTED INPATIENT Admit to: Med Surg Condition: Serious Critical Care Note Critical Care Time?: No Stability Stability form required: Yes Unstable for transfer: Requires medication, ED Physician Assesment, Possible rapid decline Heart Score Heart Score: Heart Score Response (Comments) Value History Slightly Suspicious 0 EKG Normal 0 Age 45-64 1 Risk Factors 1 or 2 risk factors 1 Troponin Normal limit 0 Total 2 I personally scribed for CLINT DONALD ([email or web address]) on 04/15/24 at 10:44. Electronically submitted by Frank Lorenzana ([email or web address]). I personally scribed for CLINT DONALD ([email or web address]) on 04/15/24 at 12:39. Electronically submitted by Frank Lorenzana ([email or web address]). CLINT DONALD Apr 15, 2024 10:44
[2024-04-15] MEDS: AZITHROMYCIN 500MG/ 250ML 250 ML IV ONE (10:45)
[2024-04-15] MEDS: cefTRIAXone 1GM/50ML D5W 50 ML IV ONE (10:45)
[2024-04-15 11:02] LABS: Urine Bacteria None Seen /hpf (None Seen)
[2024-04-15] MEDS: SODIUM CHLORIDE 0.9% 1,000 ML IV ONE (11:06)
[2024-04-15 11:19] LABS: Chloride 101 mmol/L (98-107); Potassium 3.5 mmol/L (3.5-5.1)
[2024-04-15 11:20] LABS: Anion Gap 12 (5-15); Calcium 10.1 mg/dL (8.7-10.4); Carbon Dioxide 22 mmol/L (20-31); Sodium 135 mmol/L (136-145)
[2024-04-15 11:25] LABS: BUN/Creatinine Ratio 25.3 (10.0-20.0); Blood Urea Nitrogen 19 mg/dL (9-23)
[2024-04-15 11:26] LABS: Glucose 153 mg/dL (74-106)
[2024-04-15 11:33] LABS: Basophils # (auto) 0.2 10 ^3/uL (0-0.2); Basophils % (auto) 0.8 % (0.0-2.0); Eosinophils # (auto) 0 10 ^3/uL (0-0.8); Hematocrit 42.3 % (36.0-46.0); Hemoglobin 14.3 g/dL (12.2-16.2); Lymphocytes # (auto) 1.2 10 ^3/uL (0.4-5.4); Lymphocytes % (auto) 5.5 % (10.0-50.0); Mean Corpuscular Hgb Conc. 33.9 g/dL (32.0-36.0); Mean Corpuscular Volume 94.2 fL (80.0-100.0); Neutrophils # (auto) 18.5 10 ^3/uL (1.6-8.6); Neutrophils % (auto) 88.7 % (37.0-80.0); Nucleated Red Blood Cells % 0.1 %; Platelet Count (auto) 163 10^3/uL (140-450); Red Blood Cells 4.49 10^6/uL (4.0-5.20); Red Cell Distribution Width 13.7 % (11.8-14.3); White Blood Cell 20.8 10^3/uL (4.4-10.8)
[2024-04-15 11:34] LABS: Lactic Acid w/Reflex 2.1 mmol/L (0.4-2.0)
[2024-04-15 11:38] LABS: Urine Blood 3+ /uL (Negative); Urine Budding Yeast OCCASIONAL /hpf (None Seen); Urine Clarity Clear (Clear); Urine Color Light-Orange (Yellow); Urine Mucus FEW (None Seen); Urine Protein, UAD 2+ (Negative); Urine Specific Gravity 1.037 (1.001-1.035); Urine Squamous Epithelial Cell FEW /hpf (<5); Urine Urobilinogen Normal (Negative); Urine WBC 6 /HPF (0-5); Urine pH 5.5 (5.0-9.0)
[2024-04-15 11:42] LABS: COVID19 ANTIGEN SOFIA FIA NEGATIVE (NEGATIVE)
[2024-04-15] MEDS ORDERED: MORPHINE SULFATE INJ 2 MG/ml SYRG IV PRN (12:15)
[2024-04-15] MEDS ORDERED: ONDANSETRON HCL 4 MG/2 ML VIAL IV PRN (12:15)
[2024-04-15] MEDS ORDERED: DEXTROSE (50%) 50ML SYRG IV PRN (12:15)
[2024-04-15] MEDS ORDERED: IPRATROPIUM BROM 0.5 MG/2.5ML INH SOL NEB PRN (12:15)
[2024-04-15] MEDS ORDERED: ALBUTEROL SULF 2.5 MG/0.5ML(0.5%) NEB SOLN NEB PRN (12:15)
--- NOTE | 2024-04-15 13:12 | DVHHP2 ---
History of Present Illness Reason for Visit: Headache, chills, and body aches History of Present Illness Belen Martines is a 63-year-old female with past medical history of hypertension, diabetes, restless legs syndrome, hysterectomy, appendectomy, cholecystectomy, , and right breast cyst removal who presents to the ED for body aches, chills, headache, chest wall pain, congestion, and cough x3 days. Patient denies being around any sick contacts also recent ingestion of spoiled food, SOB, abdominal pain, nausea, vomiting, diarrhea, lightheadedness, and weakness. Cardiovascular: HTN Endocrine: Diabetes Past Medical History Restless leg syndrome Past Surgical History: Appendectomy, Cholecystectomy, , Hysterectomy, Other (Right breast cyst removal) Family History: Other (Both ) Smoke: No ALCOHOL: none Drugs: None Lives: with Family Domestic Violence: Neg Review of Systems Constitutional: Yes: Chills, Other (Body ache, headache); No: Fever, Sweats, Weakness, Malaise Eyes: No: Pain, Vision change, Conjunctivae inflammation, Eyelid inflammation, Other, Redness ENT: No: Ear pain, Ear discharge, Nose pain, Nose discharge, Nose congestion, Mouth pain, Mouth swelling, Throat pain, Throat swelling, Other Respiratory: Cough, Other (Congestion) Cardiovascular: Other (Chest wall pain); No: Chest Pain, Palpitations, Orthopnea, Paroxysmal Noc. Dyspnea, Edema, Lt Headedness Gastrointestinal: No: Nausea, Vomiting, Abdominal Pain, Diarrhea, Constipation, Melena, Hematochezia, Other Genitourinary: No Dysuria, No Frequency, No Incontinence, No Hematuria, No Retention, No Other Musculoskeletal: No: other, neck pain, shoulder pain, arm pain, back pain, hand pain, leg pain, foot pain Skin: No: Rash, Lesions, Jaundice, Bruising, Other Neurological: No: Weakness, Numbness, Incoordination, Change in speech, Confusion, Seizures, Other Allergies: Coded Allergies: NO KNOWN ALLERGIES (Unverified , 07/04/15) Exam Vital Signs Vital Signs Date Time Temp Pulse Resp B/P (MAP) Pulse Ox O2 Delivery O2 Flow Rate FiO2 04/15/24 10:44 106 04/15/24 10:26 20 95 Room Air 04/15/24 10:26 99.9 128/52 (77) 99.9 General Appearance: Alert, Oriented X3, Cooperative, No acute distress HEENT: Atraumatic, PERRLA, EOMI, Mucous membr. moist/pink Respiratory: Normal air movement Cardiovascular: Normal S1, Normal S2 Abdominal: Normal bowel sounds, Soft, No tenderness, No hepatospenomegaly, No masses Extremities: No clubbing, No cyanosis, No edema, Normal pulses, No tenderness/swelling Skin: No rashes, No breakdown, No significant lesion Neuro: Normal gait, Normal speech, Strength at 5/5 X4 ext, Normal tone, Sensation intact Psych/Mental Status: Mental status NL, Mood NL Labs/Xrays Labs Test 04/15/24 11:01 04/15/24 10:48 04/15/24 09:34 Range/Units Urine Color Light-orange Yellow Urine Clarity Clear Clear Urine pH 5.5 5.0-9.0 Urine Specific [place] 1.037 H 1.001-1.035 Urine Protein 2+ H Negative Urine Ketones 3+ H Negative Urine Blood 3+ H Negative /uL Urine Nitrite Negative Negative Urine Bilirubin Negative Negative Urine Urobilinogen Normal Negative mg/dL Urine Leukocyte Esterase Negative Negative /uL Urine RBC 8 0 - 4 /hpf Urine Microscopic WBC 6 H 0-5 /HPF Urine Squamous Epithelial Cells Few <5 /hpf Urine Bacteria None seen None Seen /hpf Urine Mucus Few None Seen Urine Yeast (Budding) Occasional None Seen /hpf Urine Glucose 4+ H Normal mg/dL SARS-CoV-2 Antigen (Rapid) Negative NEGATIVE White Blood Count 20.8 H 4.4-10.8 10^3/uL Red Blood Count 4.49 4.0-5.20 10^6/uL Hemoglobin 14.3 12.2-16.2 g/dL Hematocrit 42.3 36.0-46.0 % Mean Corpuscular Volume 94.2 80.0-100.0 fL Mean Corpuscular Hemoglobin 32.0 28.0-32.0 pg Mean Corpuscular Hemoglobin Concent 33.9 32.0-36.0 g/dL Red Cell Distribution Width 13.7 11.8-14.3 % Platelet Count 163 140-450 10^3/uL Mean Platelet Volume 9.6 6.9-10.8 fL Neutrophils (%) (Auto) 88.7 H 37.0-80.0 % Lymphocytes (%) (Auto) 5.5 L 10.0-50.0 % Monocytes (%) (Auto) 5.0 0.0-12.0 % Eosinophils (%) (Auto) 0.0 0.0-7.0 % Basophils (%) (Auto) 0.8 0.0-2.0 % Neutrophils # (Auto) 18.5 H 1.6-8.6 10 ^3/uL Lymphocytes # (Auto) 1.2 0.4-5.4 10 ^3/uL Monocytes # (Auto) 1.0 0-1.3 10 ^3/uL Eosinophils # (Auto) 0 0-0.8 10 ^3/uL Basophils # (Auto) 0.2 0-0.2 10 ^3/uL Nucleated Red Blood Cells 0.1 % Sodium Level 135 L 136-145 mmol/L Potassium Level 3.5 3.5-5.1 mmol/L Chloride Level 101 98-107 mmol/L Carbon Dioxide Level 22 20-31 mmol/L Anion Gap 12 5-15 Blood Urea Nitrogen 19 9-23 mg/dL Creatinine 0.75 0.550-1.02 mg/dL Glomerular Filtration Rate Calc 89 >90 mL/min BUN/Creatinine Ratio 25.3 H 10.0-20.0 Serum Glucose 153 H 74-106 mg/dL Lactic Acid Level 2.1 *H 0.4-2.0 mmol/L Calcium Level 10.1 8.7-10.4 mg/dL Troponin I High Sensitivity 4 </=34 ng/L POC Glucose 149 H 70-106 mg/dl CHEST RADIOGRAPH Indication: COUGH Technique: Frontal and lateral view of the chest was obtained Comparison: XY CHEST TWO VIEWS ROUTINE on DOS: 05/05/23, CS2 on DOS: 08/25/21, CHEST TWO VIEWS ROUTINE on DOS: 07/07/21, CXR2 on DOS: 07/07/21 FINDINGS: Lines and Tubes: None Lungs: Right upper lobe pneumonia Pleura: No effusion. No pneumothorax. Cardiomediastinal contours: Unremarkable Bones: Unremarkable IMPRESSION: Right upper lobe pneumonia Assessment/Plan Assessment/Plan Assessment/Plan: Leukocytosis likely due to pneumonia Lactic acidosis likely due to pneumonia Proteinuria Glucosuria Labs IV antibiotics-ceftriaxone + azithromycin NS 1 L given ED COVID negative UA Blood cultures Lactic Troponin negative Chest x-ray EKG Flu swab A.m. labs Respiratory treatments IV steroids H2 blockers Antipyretics Diabetes type 2 uncontrolled Hemoglobin A1c ISS and Accu-Cheks Chronic hypertension Continue home medications Chronic Restless leg syndrome Follow up outpatient with PCP Obesity Discussed lifestyle modifications, exercise, and diet FEN/PPX Diet Hep-Lock DVT prophylaxis-not indicated patient ambulating PUD prophylaxis-famotidine Admit patient to Med surg Home medication reconciled Discussed plan of care with patient and nurse Plan discussed with: Patient My Orders Orders - THERESE RODRIGUEZ Procedure Category Date Status Time Rapid Influenza A&B LAB 04/15/24 Logged 12:14 Date of Service: Apr 15, 2024 Billing Provider: THERESE RODRIGUEZ Common Visit Codes: [id number] INP/OBS CARE (HIGH) THERESE RODRIGUEZ Apr 15, 2024 13:12
[2024-04-15] MEDS: IPRATROPIUM BROM 0.5 MG/2.5ML INH SOL NEB SCH (14:06)
[2024-04-15] MEDS: ALBUTEROL SULF 2.5 MG/0.5ML(0.5%) NEB SOLN NEB SCH (14:06)
[2024-04-15] MEDS: ACETAMINOPHEN 325 MG TAB PO PRN (14:37)
[2024-04-15 16:37] LABS: Rapid Influenza A Negative (Negative); Rapid Influenza B Negative (Negative)
[2024-04-15] MEDS: ACCU-CHEK COMFORT CURVE STRIP VI SCH (17:44)
[2024-04-15] MEDS: InsuLIN REG 1unit/0.01ml Soln (100units/ml) SC SCH (17:46)
[2024-04-15] MEDS: methylPREDNISolone SOD SUCC 40 MG/ML VL IV SCH (21:26)
[2024-04-15] MEDS: ATORVASTATIN 20 MG TAB PO SCH (21:26)
[2024-04-15] MEDS: HYDROcodone-ACET 5/325MG TAB PO PRN (21:28)
[2024-04-16] VITALS (17 sets, daily range): BP systolic 102–110; BP diastolic 54–64; PULSE 51–84; RESP 16–20; TEMP 97.2–97.7; O2SAT 93–100
[2024-04-16] MEDS: CHOLECALCIFEROL (VITD3) 1,000UNIT=25mCg TAB PO SCH (10:00)
[2024-04-16] MEDS: LISINOPRIL 5 MG TAB PO SCH (10:00)
[2024-04-16] MEDS: AZITHROMYCIN 500MG/ 250ML 250 ML IV SCH (10:03)
[2024-04-16] MEDS: cefTRIAXone 1GM/50ML D5W 50 ML IV SCH (10:03)
[2024-04-16] MEDS: FAMOTIDINE (10MG/ML) 2ML VL IV SCH (10:04)
--- NOTE | 2024-04-16 18:20 | DVHPN2 ---
Subjective HPI: Belen Martines is a 63-year-old female with past medical history of hypertension, diabetes, restless legs syndrome, hysterectomy, appendectomy, cholecystectomy, , and right breast cyst removal who presents to the ED for body aches, chills, headache, chest wall pain, congestion, and cough x3 days. Patient denies being around any sick contacts also recent ingestion of spoiled food, SOB, abdominal pain, nausea, vomiting, diarrhea, lightheadedness, and weakness. 04/16 - patient still having pleuritic chest pain on the right front chest wall and right back shoulder blade. Still having some cough that is productive. Bilateral legs or nonedematous. She appears to be off of oxygen now but does require oxygen if she talks too long. There is some concern for PE we will get D-dimer and bilateral lower extremity DVT study Reviewed: H&P Changes from previous H/P or p: No Changes General: Per HPI Eyes: No Pain, No Vision change, No Conjunctivae inflammation, No Eyelid inflammation, No Other, No Redness ENT: No Ear pain, No Ear discharge, No Nose pain, No Nose discharge, No Nose congestion, No Mouth pain, No Mouth swelling, No Throat pain, No Throat swelling, No Other Cardiovascular: No Chest Pain, No Palpitations, No Orthopnea, No Paroxysmal Noc. Dyspnea, No Edema, No Lt Headedness; Other (Chest wall pain) Respiratory: Cough, Other (Congestion) Gastrointestinal: No Nausea, No Vomiting, No Abdominal Pain, No Diarrhea, No Constipation, No Melena, No Hematochezia, No Other Genitourinary: No Dysuria, No Frequency, No Incontinence, No Hematuria, No Retention, No Other Musculoskeletal: No other, No neck pain, No shoulder pain, No arm pain, No back pain, No hand pain, No leg pain, No foot pain Skin: No Rash, No Lesions, No Jaundice, No Bruising, No Other Objective Vitals Vital Signs Date Time Temp Pulse Resp B/P (MAP) Pulse Ox O2 Delivery O2 Flow Rate FiO2 04/16/24 18:07 77 18 94 04/16/24 18:07 Room Air 0.0 04/16/24 18:07 21 04/16/24 16:56 97.4 105/55 (72) 97.4 Intake/Output Intake and Output 04/16/24 07:00 Intake Total 480 ml Balance 480 ml Intake Oral 480 ml # Voids 3 Exam General Appearance: Alert, Oriented X3, Cooperative, No acute distress HEENT: Atraumatic, PERRLA, EOMI, Mucous membr. moist/pink Respiratory: Right lower lobe and right middle lobe with some faint rhonchi. Cardiovascular: Normal S1, Normal S2 Abdominal: Normal bowel sounds, Soft, No tenderness, No hepatospenomegaly, No masses Extremities: No clubbing, No cyanosis, No edema, Normal pulses, No tenderness/swelling Skin: No rashes, No breakdown, No significant lesion Neuro: Normal gait, Normal speech, Strength at 5/5 X4 ext, Normal tone, Sensation intact Psych/Mental Status: Mental status NL, Mood NL Medications Current Medications Medications Dose Ordered Sig/Venkata Route Start Time Stop Time Status Last Admin Dose Admin Ceftriaxone Sodium 50 ml @ 100 mls/hr DAILY@09 IV 04/16/24 09:00 04/16/24 10:03 100 MLS/HR Azithromycin 250 ml @ 125 mls/hr DAILY IV 04/16/24 10:00 04/16/24 10:03 125 MLS/HR Diagnostic Test (Pha) 1 strip ACHS 04/15/24 17:00 04/16/24 11:30 1 STRIP Insulin Human Regular ACHS SC 04/15/24 17:00 04/16/24 11:30 4 UNITS Dextrose 50 ml UD PRN IV 04/15/24 12:15 Albuterol 2.5 mg Q4HWA NEB 04/15/24 14:00 04/16/24 18:07 2.5 MG Albuterol 2.5 mg Q2HPRN PRN NEB 04/15/24 12:15 Ipratropium [place] 0.5 mg Q4HWA NEB 04/15/24 14:00 04/16/24 18:07 0.5 MG Ipratropium [place] 0.5 mg Q2HPRN PRN NEB 04/15/24 12:15 Acetaminophen/ Hydrocodone Bitart 1 tab Q4HP PRN PO 04/15/24 12:15 04/15/24 21:28 1 TAB Ondansetron HCl 4 mg Q4HP PRN IV 04/15/24 12:15 Acetaminophen 650 mg Q6HP PRN PO 04/15/24 12:15 04/15/24 14:37 650 MG Morphine Sulfate 2 mg Q4HPRN PRN IV 04/15/24 12:15 Atorvastatin Calcium 10 mg HS PO 04/15/24 22:00 04/15/24 21:26 10 MG Cholecalciferol 2,000 unit DAILY PO 04/16/24 10:00 04/16/24 10:00 2,000 UNIT Lisinopril 10 mg DAILY PO 04/16/24 10:00 04/16/24 10:00 10 MG Famotidine 20 mg DAILY IV 04/16/24 10:00 04/16/24 10:04 20 MG Laboratory Results Laboratory Tests 04/15/24 10:48 Urinalysis Test 04/15/24 11:01 Urine Color Light-orange (Yellow) Urine Clarity Clear (Clear) Urine pH 5.5 (5.0-9.0) Urine Specific [place] 1.037 (1.001-1.035) Urine Protein 2+ (Negative) H Urine Ketones 3+ (Negative) H Urine Blood 3+ /uL (Negative) H Urine Nitrite Negative (Negative) Urine Bilirubin Negative (Negative) Urine Urobilinogen Normal mg/dL (Negative) Urine Leukocyte Esterase Negative /uL (Negative) Urine RBC 8 /hpf (0 - 4) Urine Microscopic WBC 6 /HPF (0-5) H Urine Squamous Epithelial Cells Few /hpf (<5) Urine Bacteria None seen /hpf (None Seen) Urine Mucus Few (None Seen) Urine Yeast (Budding) Occasional /hpf (None Urine Glucose 4+ mg/dL (Normal) H Microbiology Microbiology Date/Time Source Procedure Growth Status 04/15/24 10:48 Blood Blood Culture - Preliminary NO GROWTH AFTER 24 HOURS OF INCUBATION. Resulted Labs and/or images reviewed: Labs reviewed by me, Image(s) reviewed by me Assessment/Plan Assessment/Plan 04/16 - patient still having pleuritic chest pain on the right front chest wall and right back shoulder blade. Still having some cough that is productive. Bilateral legs or nonedematous. She appears to be off of oxygen now but does require oxygen if she talks too long. There is some concern for PE we will get D-dimer and bilateral lower extremity DVT study Sepsis due to pneumonia Acute hypoxic respiratory failure due to pneumonia Pneumonia, Gram-negative/Gram-positive likely Leukocytosis due to pneumonia Neutrophilia Lactic acidosis due to pneumonia tachycardia -on admit patient has leukocytosis with neutrophilia, tachycardia, low-grade fevers. Patient is symptoms of upper respiratory cough congestion, productive cough with sputum production is concerning for pneumonia. On exam patient has right lower lobe rhonchi -patient requiring low-level was off nasal cannula oxygen after admission, waxing waning workup for oxygen. -CXR with concern for right upper lobe pneumonia - continue IV antibiotic ceftriaxone azithromycin Oxygen goal more than 90%, nasal cannula or her to maintain oxygenation Duo nebs q.4h while awake -. IV steroids, patient has no history of COPD and no wheezing. - p.r.n. Robitussin F cough as uncontrollable Intravascular volume depletion-specific guarding 1 UA is elevated concerning for wound depletion Type 2 diabetes with hyperglycemia - sliding scale insulin, no p.o. meds Proteinuria Proteinuria with hematuria, concern for glomerular nephritis Glucosuria --follow up with PCP. PCP to consider nephrology referral. Daily BNP 2 monitor kidney function Chronic hypertension-continue home meds Chronic restless leg syndrome-follow up with PCP Obesity-lifestyle modifications, follow up with PCP Diet diabetic DVT prophylaxis-Lovenox GI prophylaxis-famotidine Med surge Full code Plan discussed with: Patient Date of Service: Apr 16, 2024 Billing Provider: WICHO RICE MD Common Visit Codes: [id number] INP/OBS CARE(HIGH) WICHO RICE MD Apr 16, 2024 18:20
--- NOTE | 2024-04-16 18:56 | DVH ---
Bilateral lower extremity venous duplex Clinical History: r/o dvt for concern of PE Comparison: None Technique: Duplex Doppler evaluation of the deep venous systems of both lower extremities from the co mmon femoral veins to the popliteal veins including color Doppler and spectral/pulsed waveform analys is was performed. Findings: RIGHT SIDE: The common femoral vein demonstrates appropriate compressibility and waveform variability. There is compressibility/patency of the great saphenous vein at the proximal thigh. The femoral vein demonstrates appropriate compressibility and waveform variability. The deep femoral vein demonstrates appropriate compressibility and waveform variability. The popliteal vein demonstrates appropriate compressibility and waveform variability. There is color flow at the tibioperoneal trunk and in the posterior tibial vein. LEFT SIDE: The common femoral vein demonstrates appropriate compressibility and waveform variability. There is compressibility/patency of the great saphenous vein at the proximal thigh. The femoral vein demonstrates appropriate compressibility and waveform variability. The deep femoral vein demonstrates appropriate compressibility and waveform variability. The popliteal vein demonstrates appropriate compressibility and waveform variability. There is color flow at the tibioperoneal trunk and in the posterior tibial vein. Impression: 1. No right or left femoropopliteal venous thrombosis.
[2024-04-16 19:25] LABS: Basophils # (auto) 0.1 10 ^3/uL (0-0.2); Basophils % (auto) 0.4 % (0.0-2.0); Eosinophils # (auto) 0 10 ^3/uL (0-0.8); Hematocrit 41.1 % (36.0-46.0); Hemoglobin 13.7 g/dL (12.2-16.2); Lymphocytes # (auto) 0.9 10 ^3/uL (0.4-5.4); Lymphocytes % (auto) 5.3 % (10.0-50.0); Mean Corpuscular Hemoglobin 31.7 pg (28.0-32.0); Mean Corpuscular Hgb Conc. 33.3 g/dL (32.0-36.0); Mean Corpuscular Volume 95.2 fL (80.0-100.0); Monocytes # (auto) 0.5 10 ^3/uL (0-1.3); Monocytes % (auto) 3.1 % (0.0-12.0); Neutrophils # (auto) 15.5 10 ^3/uL (1.6-8.6); Neutrophils % (auto) 91.2 % (37.0-80.0); Platelet Count (auto) 211 10^3/uL (140-450); Red Blood Cells 4.31 10^6/uL (4.0-5.20); Red Cell Distribution Width 13.9 % (11.8-14.3)
[2024-04-16 19:42] LABS: Alanine Aminotransferase 23 U/L (7-40); Albumin 4.7 g/dL (3.2-4.8); Alkaline Phosphatase 90 U/L (46-116); Anion Gap 10 (5-15); Aspartate Aminotransferase 14 U/L (13-40); BUN/Creatinine Ratio 22.8 (10.0-20.0); Bilirubin, Total 0.3 mg/dL (0.2-1.0); Blood Urea Nitrogen 23 mg/dL (9-23); Calcium 10.4 mg/dL (8.7-10.4); Carbon Dioxide 25 mmol/L (20-31); Chloride 102 mmol/L (98-107); Glucose 283 mg/dL (74-106); Potassium 3.6 mmol/L (3.5-5.1); Sodium 137 mmol/L (136-145); Total Protein 7.6 g/dL (5.7-8.2)
[2024-04-17] VITALS (17 sets, daily range): BP systolic 97–121; BP diastolic 45–64; PULSE 53–85; RESP 16–20; TEMP 96.7–98.1; O2SAT 94–100
[2024-04-17] MEDS: ENOXAPARIN SOD 40 MG/0.4 ML SYRINGE SC SCH (09:37)
[2024-04-17 09:46] LABS: Basophils # (auto) 0 10 ^3/uL (0-0.2); Basophils % (auto) 0.2 % (0.0-2.0); Eosinophils # (auto) 0 10 ^3/uL (0-0.8); Hematocrit 37.9 % (36.0-46.0); Hemoglobin 12.8 g/dL (12.2-16.2); Lymphocytes # (auto) 2.2 10 ^3/uL (0.4-5.4); Lymphocytes % (auto) 13.2 % (10.0-50.0); Mean Corpuscular Hgb Conc. 33.7 g/dL (32.0-36.0); Monocytes # (auto) 0.7 10 ^3/uL (0-1.3); Monocytes % (auto) 3.9 % (0.0-12.0); Neutrophils # (auto) 14.1 10 ^3/uL (1.6-8.6); Neutrophils % (auto) 82.7 % (37.0-80.0); Platelet Count (auto) 203 10^3/uL (140-450); Red Blood Cells 3.99 10^6/uL (4.0-5.20); Red Cell Distribution Width 13.5 % (11.8-14.3); White Blood Cell 17.1 10^3/uL (4.4-10.8)
[2024-04-17 09:50] LABS: Alanine Aminotransferase 18 U/L (7-40); Albumin 4.2 g/dL (3.2-4.8); Alkaline Phosphatase 82 U/L (46-116); Anion Gap 10 (5-15); Aspartate Aminotransferase 14 U/L (13-40); Calcium 9.7 mg/dL (8.7-10.4); Carbon Dioxide 26 mmol/L (20-31); Chloride 101 mmol/L (98-107); Sodium 137 mmol/L (136-145)
[2024-04-17 09:51] LABS: Bilirubin, Total 0.3 mg/dL (0.2-1.0); Blood Urea Nitrogen 23 mg/dL (9-23); Glucose 259 mg/dL (74-106); Potassium 3.5 mmol/L (3.5-5.1); Total Protein 6.8 g/dL (5.7-8.2)
[2024-04-17] MEDS: LACTULOSE 20Gm/30ML SOLN PO ONE ×2 (14:30→21:51)
[2024-04-17] MEDS: DOCUSATE SOD 100 MG CAP PO PRN (16:32)
--- NOTE | 2024-04-17 17:41 | DVHPN2 ---
Subjective Update 04/17 04/16 - patient still having pleuritic chest pain on the right front chest wall and right back shoulder blade. Still having some cough that is productive. Bilateral legs or nonedematous. She appears to be off of oxygen now but does require oxygen if she talks too long. There is some concern for PE we will get D-dimer and bilateral lower extremity DVT study 04/17--patient is still having cough. Screening test for DVT are negative, we will hold off CTA as this low concern. We will continue antibiotics and try some muscle relaxants and some pain control. We will hope that these measures can improve pleuritic chest pain on the right chest wall. Patient informed of plan and is in agreement Reviewed: H&P Changes from previous H/P or p: No Changes General: Per HPI Cardiovascular: Other Objective Vitals Vital Signs Date Time Temp Pulse Resp B/P (MAP) Pulse Ox O2 Delivery O2 Flow Rate FiO2 04/17/24 14:02 59 16 99 04/17/24 13:56 Room Air 0.0 04/17/24 13:56 21 04/17/24 13:00 98.0 109/58 (75) 98.0 Intake/Output Intake and Output 04/17/24 07:00 Intake Total 2470 ml Output Total 5 ml Balance 2465 ml Intake Oral 2470 ml Output Urine Total 5 ml # Voids 4 Exam General Appearance: Alert, Oriented X3, Cooperative, No acute distress HEENT: Atraumatic, PERRLA, EOMI, Mucous membr. moist/pink Respiratory: Right lower lobe and right middle lobe with some faint rhonchi. Cardiovascular: Normal S1, Normal S2 Abdominal: Normal bowel sounds, Soft, No tenderness, No hepatospenomegaly, No masses Extremities: No clubbing, No cyanosis, No edema, Normal pulses, No tenderness/swelling Skin: No rashes, No breakdown, No significant lesion Neuro: Normal gait, Normal speech, Strength at 5/5 X4 ext, Normal tone, Sensation intact Psych/Mental Status: Mental status NL, Mood NL Medications Current Medications Medications Dose Ordered Sig/Venkata Route Start Time Stop Time Status Last Admin Dose Admin Ceftriaxone Sodium 50 ml @ 100 mls/hr DAILY@09 IV 04/16/24 09:00 04/17/24 08:15 100 MLS/HR Azithromycin 250 ml @ 125 mls/hr DAILY IV 04/16/24 10:00 04/17/24 09:38 125 MLS/HR Diagnostic Test (Pha) 1 strip ACHS 04/15/24 17:00 04/17/24 16:35 1 STRIP Insulin Human Regular ACHS SC 04/15/24 17:00 04/17/24 16:40 2 UNITS Dextrose 50 ml UD PRN IV 04/15/24 12:15 Albuterol 2.5 mg Q4HWA NEB 04/15/24 14:00 04/17/24 13:56 2.5 MG Albuterol 2.5 mg Q2HPRN PRN NEB 04/15/24 12:15 Ipratropium [place] 0.5 mg Q4HWA NEB 04/15/24 14:00 04/17/24 13:56 0.5 MG Ipratropium [place] 0.5 mg Q2HPRN PRN NEB 04/15/24 12:15 Acetaminophen/ Hydrocodone Bitart 1 tab Q4HP PRN PO 04/15/24 12:15 04/17/24 08:14 1 TAB Ondansetron HCl 4 mg Q4HP PRN IV 04/15/24 12:15 Acetaminophen 650 mg Q6HP PRN PO 04/15/24 12:15 04/17/24 02:51 650 MG Morphine Sulfate 2 mg Q4HPRN PRN IV 04/15/24 12:15 Atorvastatin Calcium 10 mg HS PO 04/15/24 22:00 04/16/24 22:35 10 MG Cholecalciferol 2,000 unit DAILY PO 04/16/24 10:00 04/17/24 09:36 2,000 UNIT Lisinopril 10 mg DAILY PO 04/16/24 10:00 04/17/24 09:37 10 MG Famotidine 20 mg DAILY IV 04/16/24 10:00 04/17/24 09:39 20 MG Enoxaparin Sodium 40 mg DAILY SC 04/17/24 10:00 04/17/24 09:37 40 MG Docusate Sodium 100 mg BIDPRN PRN PO 04/17/24 14:45 04/17/24 16:32 100 MG Laboratory Results Laboratory Tests 04/17/24 08:31 Chemistry Test 04/16/24 19:14 04/17/24 08:31 Albumin 4.7 g/dL (3.2-4.8) 4.2 g/dL (3.2-4.8) Calcium Level 10.4 mg/dL (8.7-10.4) 9.7 mg/dL (8.7-10.4) Total Protein 7.6 g/dL (5.7-8.2) 6.8 g/dL (5.7-8.2) Coagulation Test 04/16/24 19:14 D-Dimer, Quantitative 0.45 mg/L FEU (0.0-0.49) LFT Test 04/16/24 19:14 04/17/24 08:31 Alanine Aminotransferase (ALT) 23 U/L (7-40) 18 U/L (7-40) Alkaline Phosphatase 90 U/L (46-116) 82 U/L (46-116) Aspartate Amino Transferase (AST) 14 U/L (13-40) 14 U/L (13-40) Total Bilirubin 0.3 mg/dL (0.2-1.0) 0.3 mg/dL (0.2-1.0) Urinalysis Test 04/15/24 11:01 Urine Color Light-orange (Yellow) Urine Clarity Clear (Clear) Urine pH 5.5 (5.0-9.0) Urine Specific [place] 1.037 (1.001-1.035) Urine Protein 2+ (Negative) H Urine Ketones 3+ (Negative) H Urine Blood 3+ /uL (Negative) H Urine Nitrite Negative (Negative) Urine Bilirubin Negative (Negative) Urine Urobilinogen Normal mg/dL (Negative) Urine Leukocyte Esterase Negative /uL (Negative) Urine RBC 8 /hpf (0 - 4) Urine Microscopic WBC 6 /HPF (0-5) H Urine Squamous Epithelial Cells Few /hpf (<5) Urine Bacteria None seen /hpf (None Seen) Urine Mucus Few (None Seen) Urine Yeast (Budding) Occasional /hpf (None Urine Glucose 4+ mg/dL (Normal) H Microbiology Microbiology Date/Time Source Procedure Growth Status 04/15/24 10:48 Blood Blood Culture - Preliminary NO GROWTH AFTER 48 HOURS OF INCUBATION. Resulted Labs and/or images reviewed: Labs reviewed by me, Image(s) reviewed by me Assessment/Plan Assessment/Plan 04/17--patient is still having cough. Screening test for DVT are negative, we will hold off CTA as this low concern. We will continue antibiotics and try some muscle relaxants and some pain control. We will hope that these measures can improve pleuritic chest pain on the right chest wall. Patient informed of plan and is in agreement Sepsis due to pneumonia Acute hypoxic respiratory failure due to pneumonia Pneumonia, Gram-negative/Gram-positive likely Leukocytosis due to pneumonia Neutrophilia Lactic acidosis due to pneumonia tachycardia -on admit patient has leukocytosis with neutrophilia, tachycardia, low-grade fevers. Patient is symptoms of upper respiratory cough congestion, productive cough with sputum production is concerning for pneumonia. On exam patient has right lower lobe rhonchi -patient requiring low-level was off nasal cannula oxygen after admission, waxing waning workup for oxygen. -CXR with concern for right upper lobe pneumonia - continue IV antibiotic ceftriaxone azithromycin Oxygen goal more than 90%, nasal cannula or her to maintain oxygenation Duo nebs q.4h while awake -. IV steroids, patient has no history of COPD and no wheezing. - p.r.n. Robitussin F cough as uncontrollable - pain control Intravascular volume depletion-specific guarding 1 UA is elevated concerning for wound depletion Type 2 diabetes with hyperglycemia - sliding scale insulin, no p.o. meds Proteinuria Proteinuria with hematuria, concern for glomerular nephritis Glucosuria --follow up with PCP. PCP to consider nephrology referral. Daily BNP 2 monitor kidney function Chronic hypertension-continue home meds Chronic restless leg syndrome-follow up with PCP Obesity-lifestyle modifications, follow up with PCP Diet diabetic DVT prophylaxis-Lovenox GI prophylaxis-famotidine Med surge Full code Plan discussed with: Patient My Orders Orders - WICHO RICE MD Procedure Category Date Status Time Bilat Lower Dvt US 04/16/24 Resulted 18:09 Enoxaparin Sodium PHA 04/17/24 In Process (Lovenox) 10:00 Consistent DIET 04/17/24 Transmitted Carb(Ccho)Diabetes Breakfast Lactulose Oral PHA 04/17/24 In Process 22:00 Docusate Sodium PHA 04/17/24 In Process Capsule (Colace 14:45 Date of Service: Apr 17, 2024 Billing Provider: WICHO RICE MD Common Visit Codes: [id number] INP/OBS CARE(HIGH) WICHO RICE MD Apr 17, 2024 17:41
[2024-04-17] MEDS: PANTOPRAZOLE 40 MG/10 ML VIAL INJ IV ONE ×2 (18:21)
[2024-04-17] MEDS: BACLOFEN 10 MG TAB PO SCH (21:49)
[2024-04-17] MEDS: IBUPROFEN 600 MG TAB PO SCH (21:50)
[2024-04-18] VITALS (19 sets, daily range): BP systolic 100–137; BP diastolic 40–75; PULSE 60–102; RESP 16–20; TEMP 97.5–98.4; O2SAT 92–100
[2024-04-18 08:01] LABS: Basophils # (auto) 0 10 ^3/uL (0-0.2); Basophils % (auto) 0.2 % (0.0-2.0); Eosinophils # (auto) 0.1 10 ^3/uL (0-0.8); Eosinophils % (auto) 0.7 % (0.0-7.0); Hematocrit 39.7 % (36.0-46.0); Hemoglobin 13.3 g/dL (12.2-16.2); Lymphocytes # (auto) 3.1 10 ^3/uL (0.4-5.4); Lymphocytes % (auto) 39.9 % (10.0-50.0); Mean Corpuscular Hemoglobin 32.1 pg (28.0-32.0); Mean Corpuscular Hgb Conc. 33.4 g/dL (32.0-36.0); Mean Corpuscular Volume 95.9 fL (80.0-100.0); Monocytes # (auto) 0.5 10 ^3/uL (0-1.3); Neutrophils % (auto) 52.2 % (37.0-80.0); Platelet Count (auto) 204 10^3/uL (140-450); Red Blood Cells 4.15 10^6/uL (4.0-5.20); Red Cell Distribution Width 13.9 % (11.8-14.3); White Blood Cell 7.7 10^3/uL (4.4-10.8)
[2024-04-18 08:04] LABS: Chloride 103 mmol/L (98-107); Potassium 3.5 mmol/L (3.5-5.1); Sodium 141 mmol/L (136-145)
[2024-04-18 08:05] LABS: Anion Gap 9 (5-15); Calcium 9.7 mg/dL (8.7-10.4); Carbon Dioxide 29 mmol/L (20-31)
[2024-04-18 08:10] LABS: BUN/Creatinine Ratio 23.2 (10.0-20.0); Blood Urea Nitrogen 19 mg/dL (9-23); Glucose 104 mg/dL (74-106)
[2024-04-18] MEDS: PANTOPRAZOLE 40 MG/10 ML VIAL INJ IV SCH (09:38)
--- NOTE | 2024-04-18 14:35 | DVHPN2 ---
Subjective Update 04/18 04/16 - patient still having pleuritic chest pain on the right front chest wall and right back shoulder blade. Still having some cough that is productive. Bilateral legs or nonedematous. She appears to be off of oxygen now but does require oxygen if she talks too long. There is some concern for PE we will get D-dimer and bilateral lower extremity DVT study 04/17--patient is still having cough. Screening test for DVT are negative, we will hold off CTA as this low concern. We will continue antibiotics and try some muscle relaxants and some pain control. We will hope that these measures can improve pleuritic chest pain on the right chest wall. Patient informed of plan and is in agreement 04/18 patient is feeling improved,. Chest wall pain is improving. Still having some shortness of breath. Continuing duo nebs, antibiotics. Anticipating improvement by tomorrow Reviewed: H&P Changes from previous H/P or p: No Changes General: Per HPI Cardiovascular: Other Objective Vitals Vital Signs Date Time Temp Pulse Resp B/P (MAP) Pulse Ox O2 Delivery O2 Flow Rate FiO2 04/18/24 14:03 75 20 97 04/18/24 13:51 Room Air* 0 21 04/18/24 13:00 97.8 100/52 (68) 97.8 Intake/Output Intake and Output 04/18/24 07:00 Intake Total 1500 ml Balance 1500 ml Intake Oral 1200 ml IV Total 300 ml # Voids 9 Exam General Appearance: Alert, Oriented X3, Cooperative, No acute distress HEENT: Atraumatic, PERRLA, EOMI, Mucous membr. moist/pink Respiratory: Right lower lobe and right middle lobe with some faint rhonchi. Cardiovascular: Normal S1, Normal S2 Abdominal: Normal bowel sounds, Soft, No tenderness, No hepatospenomegaly, No masses Extremities: No clubbing, No cyanosis, No edema, Normal pulses, No tenderness/swelling Skin: No rashes, No breakdown, No significant lesion Neuro: Normal gait, Normal speech, Strength at 5/5 X4 ext, Normal tone, Sensation intact Psych/Mental Status: Mental status NL, Mood NL Medications Current Medications Medications Dose Ordered Sig/Venkata Route Start Time Stop Time Status Last Admin Dose Admin Ceftriaxone Sodium 50 ml @ 100 mls/hr DAILY@09 IV 04/16/24 09:00 04/18/24 09:31 100 MLS/HR Azithromycin 250 ml @ 125 mls/hr DAILY IV 04/16/24 10:00 04/18/24 09:40 125 MLS/HR Diagnostic Test (Pha) 1 strip ACHS 04/15/24 17:00 04/18/24 11:17 1 STRIP Insulin Human Regular ACHS SC 04/15/24 17:00 04/18/24 11:27 3 UNITS Dextrose 50 ml UD PRN IV 04/15/24 12:15 Albuterol 2.5 mg Q4HWA NEB 04/15/24 14:00 04/18/24 13:51 2.5 MG Albuterol 2.5 mg Q2HPRN PRN NEB 04/15/24 12:15 Ipratropium [place] 0.5 mg Q4HWA NEB 04/15/24 14:00 04/18/24 13:51 0.5 MG Ipratropium [place] 0.5 mg Q2HPRN PRN NEB 04/15/24 12:15 Acetaminophen/ Hydrocodone Bitart 1 tab Q4HP PRN PO 04/15/24 12:15 04/18/24 11:21 1 TAB Ondansetron HCl 4 mg Q4HP PRN IV 04/15/24 12:15 Acetaminophen 650 mg Q6HP PRN PO 04/15/24 12:15 04/17/24 20:38 650 MG Morphine Sulfate 2 mg Q4HPRN PRN IV 04/15/24 12:15 Atorvastatin Calcium 10 mg HS PO 04/15/24 22:00 04/17/24 21:50 10 MG Cholecalciferol 2,000 unit DAILY PO 04/16/24 10:00 04/18/24 09:39 2,000 UNIT Lisinopril 10 mg DAILY PO 04/16/24 10:00 04/18/24 09:38 10 MG Enoxaparin Sodium 40 mg DAILY SC 04/17/24 10:00 04/18/24 09:38 40 MG Docusate Sodium 100 mg BIDPRN PRN PO 04/17/24 14:45 04/18/24 09:46 100 MG Baclofen 5 mg HS PO 04/17/24 22:00 04/19/24 22:00 04/17/24 21:49 5 MG Ibuprofen 600 mg BID PO 04/17/24 22:00 04/19/24 22:00 04/18/24 09:38 600 MG Pantoprazole Sodium 40 mg DAILY IV 04/18/24 10:00 04/18/24 09:38 40 MG Laboratory Results Laboratory Tests 04/18/24 06:37 Chemistry Test 04/18/24 06:37 Calcium Level 9.7 mg/dL (8.7-10.4) Urinalysis Test 04/15/24 11:01 Urine Color Light-orange (Yellow) Urine Clarity Clear (Clear) Urine pH 5.5 (5.0-9.0) Urine Specific [place] 1.037 (1.001-1.035) Urine Protein 2+ (Negative) H Urine Ketones 3+ (Negative) H Urine Blood 3+ /uL (Negative) H Urine Nitrite Negative (Negative) Urine Bilirubin Negative (Negative) Urine Urobilinogen Normal mg/dL (Negative) Urine Leukocyte Esterase Negative /uL (Negative) Urine RBC 8 /hpf (0 - 4) Urine Microscopic WBC 6 /HPF (0-5) H Urine Squamous Epithelial Cells Few /hpf (<5) Urine Bacteria None seen /hpf (None Seen) Urine Mucus Few (None Seen) Urine Yeast (Budding) Occasional /hpf (None Urine Glucose 4+ mg/dL (Normal) H Microbiology Microbiology Date/Time Source Procedure Growth Status 04/15/24 10:48 Blood Blood Culture - Preliminary NO GROWTH AFTER 72 HOURS OF INCUBATION. Resulted Labs and/or images reviewed: Labs reviewed by me, Image(s) reviewed by me Assessment/Plan Assessment/Plan 04/18 patient is feeling improved,. Chest wall pain is improving. Still having some shortness of breath. Continuing duo nebs, antibiotics. Anticipating improvement by tomorrow Sepsis due to pneumonia Acute hypoxic respiratory failure due to pneumonia Pneumonia, Gram-negative/Gram-positive likely Leukocytosis due to pneumonia Neutrophilia Lactic acidosis due to pneumonia tachycardia -on admit patient has leukocytosis with neutrophilia, tachycardia, low-grade fevers. Patient is symptoms of upper respiratory cough congestion, productive cough with sputum production is concerning for pneumonia. On exam patient has right lower lobe rhonchi -patient requiring low-level was off nasal cannula oxygen after admission, waxing waning workup for oxygen. -CXR with concern for right upper lobe pneumonia - continue IV antibiotic ceftriaxone azithromycin Oxygen goal more than 90%, nasal cannula or her to maintain oxygenation Duo nebs q.4h while awake -. IV steroids, patient has no history of COPD and no wheezing. - p.r.n. Robitussin F cough as uncontrollable - pain control Intravascular volume depletion-specific guarding 1 UA is elevated concerning for wound depletion Type 2 diabetes with hyperglycemia - sliding scale insulin, no p.o. meds Proteinuria Proteinuria with hematuria, concern for glomerular nephritis Glucosuria --follow up with PCP. PCP to consider nephrology referral. Daily BNP 2 monitor kidney function Chronic hypertension-continue home meds Chronic restless leg syndrome-follow up with PCP Obesity-lifestyle modifications, follow up with PCP Diet diabetic DVT prophylaxis-Lovenox GI prophylaxis-famotidine Med surge Full code Plan discussed with: Patient My Orders Orders - WICHO RICE MD Procedure Category Date Status Time Docusate Sodium PHA 04/17/24 In Process Capsule (Colace 14:45 Baclofen Tablet PHA 04/17/24 In Process (Liorisal Tablet) 22:00 Ibuprofen Tablet PHA 04/17/24 In Process (Motrin Tablet) 22:00 Pantoprazole PHA 04/18/24 In Process (Protonix) 10:00 Date of Service: Apr 18, 2024 Billing Provider: WICHO RICE MD Common Visit Codes: [id number] INP/OBS CARE(HIGH) WICHO RICE MD Apr 18, 2024 14:35
[2024-04-19] VITALS (15 sets, daily range): BP systolic 104–133; BP diastolic 57–75; PULSE 53–79; RESP 16–21; TEMP 97.2–98.3; O2SAT 93–100
[2024-04-19] MEDS ORDERED: LEVO750T40 PO ×2 (10:03→16:08)
[2024-04-19] MEDS ORDERED: PANT40TA57 PO (10:03)
[2024-04-19] MEDS ORDERED: BACL5TAB2 PO ×2 (10:03→16:08)
--- NOTE | 2024-04-19 10:07 | DVHDS2 ---
Discharge Summary Date of Admission Apr 15, 2024 at 12:15 Date of Discharge: Apr 19, 2024 Labs/Diagnostic Data: Laboratory Results Test 04/19/24 06:21 04/18/24 06:37 04/17/24 08:31 04/16/24 19:14 POC Glucose 136 mg/dl (70-106) White Blood Count 7.7 10^3/uL (4.4-10.8) Red Blood Count 4.15 10^6/uL (4.0-5.20) Hemoglobin 13.3 g/dL (12.2-16.2) Hematocrit 39.7 % (36.0-46.0) Mean Corpuscular Volume 95.9 fL (80.0-100.0) Mean Corpuscular Hemoglobin 32.1 pg (28.0-32.0) Mean Corpuscular Hemoglobin Concent 33.4 g/dL (32.0-36.0) Red Cell Distribution Width 13.9 % (11.8-14.3) Platelet Count 204 10^3/uL (140-450) Mean Platelet Volume 9.6 fL (6.9-10.8) Neutrophils (%) (Auto) 52.2 % (37.0-80.0) Lymphocytes (%) (Auto) 39.9 % (10.0-50.0) Monocytes (%) (Auto) 7.0 % (0.0-12.0) Eosinophils (%) (Auto) 0.7 % (0.0-7.0) Basophils (%) (Auto) 0.2 % (0.0-2.0) Neutrophils # (Auto) 4.0 10 ^3/uL (1.6-8.6) Lymphocytes # (Auto) 3.1 10 ^3/uL (0.4-5.4) Monocytes # (Auto) 0.5 10 ^3/uL (0-1.3) Eosinophils # (Auto) 0.1 10 ^3/uL (0-0.8) Basophils # (Auto) 0 10 ^3/uL (0-0.2) Nucleated Red Blood Cells 0.0 % Sodium Level 141 mmol/L (136-145) Potassium Level 3.5 mmol/L (3.5-5.1) Chloride Level 103 mmol/L (98-107) Carbon Dioxide Level 29 mmol/L (20-31) Anion Gap 9 (5-15) Blood Urea Nitrogen 19 mg/dL (9-23) Creatinine 0.82 mg/dL (0.550-1.02) Glomerular Filtration Rate Calc 80 mL/min (>90) BUN/Creatinine Ratio 23.2 (10.0-20.0) Serum Glucose 104 mg/dL (74-106) Calcium Level 9.7 mg/dL (8.7-10.4) Total Bilirubin 0.3 mg/dL (0.2-1.0) Aspartate Amino Transferase (AST) 14 U/L (13-40) Alanine Aminotransferase (ALT) 18 U/L (7-40) Alkaline Phosphatase 82 U/L (46-116) Total Protein 6.8 g/dL (5.7-8.2) Albumin 4.2 g/dL (3.2-4.8) D-Dimer, Quantitative 0.45 mg/L FEU (0.0-0.49) Test 04/15/24 15:52 04/15/24 13:13 04/15/24 11:01 04/15/24 10:48 Influenza Type A Antigen Negative (Negative) Influenza Type B Antigen Negative (Negative) Lactic Acid Level 1.7 mmol/L (0.4-2.0) Urine Color Light-orange (Yellow) Urine Clarity Clear (Clear) Urine pH 5.5 (5.0-9.0) Urine Specific [place] 1.037 (1.001-1.035) Urine Protein 2+ (Negative) Urine Ketones 3+ (Negative) Urine Blood 3+ /uL (Negative) Urine Nitrite Negative (Negative) Urine Bilirubin Negative (Negative) Urine Urobilinogen Normal mg/dL (Negative) Urine Leukocyte Esterase Negative /uL (Negative) Urine RBC 8 /hpf (0 - 4) Urine Microscopic WBC 6 /HPF (0-5) Urine Squamous Epithelial Cells Few /hpf (<5) Urine Bacteria None seen /hpf (None Seen) Urine Mucus Few (None Seen) Urine Yeast (Budding) Occasional /hpf (None Urine Glucose 4+ mg/dL (Normal) SARS-CoV-2 Antigen (Rapid) Negative (NEGATIVE) Hemoglobin A1c 5.6 % A1C (<5.7) Troponin I High Sensitivity 4 ng/L (</=34) Other Laboratory Tests 04/18/24 06:37 Brief Hx & Hospital Course: HPI: 63-year-old female with past medical history of hypertension, diabetes, restless legs syndrome, hysterectomy, appendectomy, cholecystectomy, , and right breast cyst removal who presents to the ED for body aches, chills, headache, chest wall pain, congestion, and cough x3 days. Patient denies being around any sick contacts also recent ingestion of spoiled food, SOB, abdominal pain, nausea, vomiting, diarrhea, lightheadedness, and weakness. Hospital course: on admit patient has leukocytosis with neutrophilia, tachycardia, low-grade fevers. Patient is symptoms of upper respiratory cough congestion, productive cough with sputum production is concerning for pneumonia. On exam patient has right lower lobe rhonchi. patient requiring low-level was off nasal cannula oxygen after admission, waxing waning workup for oxygen.. CXR with concern for right upper lobe pneumonia. D-dimer negative. Lower extremity ultrasound bilateral negative for any DVT. Hypoxia and tachycardia resolving, low concern for PE. Right chest wall pain resolving with muscle relaxant and NSAID. Patient was admitted for pneumonia sepsis and hypoxic respiratory failure and started on IV antibiotic ceftriaxone azithromycin. Nasal cannula given to maintain SpO2 > 90%, and weaned off by 04/18. Duo nebs q.4h while awake. No IV steroids needed. Antitussives given p.r.n.. Pain controlled offer p.r.n. patient improves and weaned off oxygen by 04/19. Vital signs stable stable for discharge with plan below. Diagnosis: Sepsis due to pneumonia Acute hypoxic respiratory failure due to pneumonia Pneumonia, Gram-negative/Gram-positive likely Leukocytosis due to pneumonia Neutrophilia Lactic acidosis due to pneumonia tachycardia Intravascular volume depletion Type 2 diabetes with hyperglycemia Proteinuria Proteinuria with hematuria, concern for glomerular nephritis Glucosuria Chronic hypertension Chronic restless leg syndrome Obesity Discharge plan: -take levofloxacin 750 mg daily for next 7 days -Take Protonix 40 daily 14 -Take home prn ibuprofen daily for next 5 days . -Advised to take conservative measures 1 [id number] cold medications. -Hydrate well. Okay to take Tylenol as well. -Take baclofen mg nightly for next 5 days -Continue other home medications -Follow up with PCP for discharge review. Visitation and planning required 35 minutes Condition at Discharge: Fair Final Diagnosis/Problems List Sepsis due to pneumonia Acute hypoxic respiratory failure due to pneumonia Pneumonia, Gram-negative/Gram-positive likely Leukocytosis due to pneumonia Neutrophilia Lactic acidosis due to pneumonia tachycardia Intravascular volume depletion Type 2 diabetes with hyperglycemia Proteinuria Proteinuria with hematuria, concern for glomerular nephritis Glucosuria Chronic hypertension Chronic restless leg syndrome Obesity Discharge Disposition: Home Discharge Instruct/Medications Diet: Consistent carbohydrate Activity: No Restrictions, As Tolerated Follow Up/Referral: pcp Medications: below Discharge Statement: "Patient was advised to return to the ER or call 911 if any headaches, dizziness, shortness of breath, chest pain, abdominal pain, bleeding, fevers, or worsening of medical condition. Patient was counseled about treatment plan, medications, possible side effects, patientverbalized understanding. All questions were answered to the best of my ability. This discharge took greater then 30 minutes in planning, reviewing documentation, counseling the patient, and discussing with other team members." Date of Service: Apr 19, 2024 Billing Provider: WICHO RICE MD Common Visit Codes: 30528-RBK/OBS DISCH DAY >30min WICHO RICE MD Apr 19, 2024 10:07
[2024-04-19] MEDS ORDERED: PANT40T PO (16:08)
== END 2024-04-19 16:20 | disposition home or self-care (01) | DRG 871 ==
LOC: ER 09:24 → OVERFLOW 12:15 → WEST WING 16:19
PROVIDERS: ADMIT Student in an Organized Health Care Education/Training Program; ATTEND Student in an Organized Health Care Education/Training Program
DX: A41.59 Other Gram-negative sepsis (principal); J15.69 Pneumonia due to other Gram-negative bacteria; J96.01 Acute respiratory failure with hypoxia; J15.9 Unspecified bacterial pneumonia; E87.20 Acidosis, unspecified; E11.9 Type 2 diabetes mellitus without complications; G25.81 Restless legs syndrome; I10 Essential (primary) hypertension; Z20.822 Contact with and (suspected) exposure to COVID-19; E66.9 Obesity, unspecified; E86.9 Volume depletion, unspecified; E11.65 Type 2 diabetes mellitus with hyperglycemia; N05.8 Unspecified nephritic syndrome with other morphologic changes; Z68.34 Body mass index [BMI] 34.0-34.9, adult; Z90.710 Acquired absence of both cervix and uterus; Z90.49 Acquired absence of other specified parts of digestive tract
CPT/HCPCS: 36415; 71046; 80048; 80053; 81001; 82962; 83036; 83605; 84484; 85025; 85379; 87040; 87426; 87804; 93005; 93970; 94640; 96360; G0378; J1815; J2470; J3490

== ENCOUNTER 2024-07-30 08:51 | Emergency (ER) | payer OTHER ==
[~2024-07-30] VITALS: Ht 157.5 cm; Wt 83.3 kg
[~2024-07-30 08:51] MED LIST changes: -AZIT-185 PO; +BACL5TAB2 PO; -GUAI-41 PO; -GUAI100S6 PO; -GUAISYP6 PO; +LEVO750T40 PO; -LIDO1PAD55 TOP; -METF-370 PO; -METH4PAK PO; +PANT40T PO
--- NOTE | 2024-07-30 11:31 | ED.PDOC ---
History of Present Illness(SKN HPI Comments 63-year-old female presents to the ER with primary medical history of diabetes, hypertension, pneumonia; surgical history of appendectomy, cholecystectomy, hysterectomy, and the chief complaint of insect bite (black ant). Patient reports that the insect be on to the left 5th digit of the medial aspect at 0830 this morning. Patient reports that she has been bitten by this insect before, causing her to get hives. Denies chills, fever, N/V/D, SOB, CP. No other associated symptoms, modifiers, recent injuries or sick contacts present at this time. Chief Complaint: Insect Bite Time Seen by MD: 10:30 Primary Care Provider: ? History of Present Illness: Nurses Notes, Medications, Allergies Allergies: Coded Allergies: NO KNOWN ALLERGIES (Unverified , 07/04/15) Home Meds Active Scripts Diphenhydramine Hcl (Benadryl Allergy) 25 Mg Cap, 25 MG PO TID for 11 Days, #30 CAP Prov:VELIA QUEVEDO MD 07/30/24 Prednisone (Prednisone) 20 Mg Tab, 20 MG PO BID for 5 Days, #10 MG Prov:VELIA QUEVEDO MD 07/30/24 Pantoprazole Sodium Sesquihydr (Pantoprazole Sodium) 40 Mg Tab, 40 MG PO DAILY for 14 Days, #14 TAB 0 Refills Prov:WICHO RICE MD 04/19/24 Levofloxacin Hemihydrate (LEVOFLOXACIN) 750 Mg Tab, 1 TAB PO DAILY, #7 TAB Prov:WICHO RICE MD 04/19/24 Baclofen (Baclofen) 5 Mg Tab, 5 MG PO HS for 5 Days, #5 TAB 0 Refills Prov:WICHO RICE MD 04/19/24 Reported Medications Lisinopril (Lisinopril) 10 Mg Tab, 1 TAB PO DAILY 05/07/23 Empagliflozin (Jardiance) 25 Mg Tab, 1 TAB PO DAILY 08/23/21 Atorvastatin Calcium (Lipitor) 10 Mg Tab, 1 TAB PO DAILY, #30 TAB 5 Refills 08/22/21 Cholecalciferol (VITAMIN D3) 2,000 Unit Tab, 1 TAB PO DAILY, #30 TAB 5 Refills 06/16/17 Information Source: Patient Mode of Arrival: Ambulatory Severity: Moderate Timing: Hours Duration: Since onset, Hours Prehospital treatment: None Location: Other (Fifth digit of the left hand) Mechanism: Insect (Black ant) Occurence: Outdoors Object: None Condition of Object: None Retained Foreign Body: Unknown Wound Type: Other (A bite) Immunization Status of Animal: Unknown Tetanus: Unknown History of: Diabetes Associated Signs and Symptoms: Redness, Swelling Past Medical History PAST MEDICAL HISTORY: DM, HTN Past Medical History (Other): Pneumonia Surgical History: Appendectomy, Cholecystectomy, , Hysterectomy WOUND SPECIALIST History: No Pertinent WOUND SPECIALIST History Family History Family History: Reviewed,noncontributory to illness, Unknown Social History Smoker: Non-Smoker Alcohol: Unknown Drugs: Denies Drug Use Lives In: Home Constitutional: reports: others (Insect bite on the left 5th digit in the medial aspect); denies: chills, diaphoresis, fatigue, fever, malaise, sweats, weakness EENTM: denies: blurred vision, double vision, ear bleeding, ear discharge, ear drainage, ear pain, ear ringing, eye pain, eye redness, hearing loss, mouth pain, mouth swelling, nasal discharge, nose bleeding, nose congestion, nose pain, photophobia, tearing, throat pain, throat swelling, voice changes, others Respiratory: denies: cough, hemoptysis, orthopnea, SOB at rest, shortness of breath, SOB with excertion, stridor, wheezing, others Cardiovascular: denies: chest pain, dizzy spells, diaphoresis, Dyspnea on exertion, edema, irregular heart beat, left arm pain, lightheadedness, palpitations, PND, syncope, others Gastrointestinal: denies: abdomen distended, abdominal pain, blood streaked bowels, constipated, diarrhea, dysphagia, difficulty swallowing, hematemesis, melena, nausea, poor appetite, poor fluid intake, rectal bleeding, rectal pain, vomiting, others Genitourinary: denies: abnormal vagina bleeding, burning, dyspareunia, dysuria, flank pain, frequency, hematuria, incontinence, pain, , vagina d ischarge, urgency, others Neurological: denies: dizziness, fainting, headache, left sided numbness, left sided weakness, numbness, paresthesia, pre-existing deficit, right sided numbness, right sided weakness, seizure, speech problems, tingling, tremors, weakness, others Musculoskeletal: denies: back pain, gout, joint pain, joint swelling, muscle pain, muscle stiffness, neck pain, others Integumetry: denies: bruises, change in color, change in hair/nails, dryness, laceration, lesions, lumps, rash, wounds, others Allergic/Immunocompromised: denies: Difficulty Healing, Frequent Infections, Hives, Itching, others Hematologic/Lymphatic: denies: anemia, blood clots, easy bleeding, easy bruising, swollen glands, others Endocrine: denies: excessive hunger, excessive sweating, excessive thirst, excessive urination, flushing, intolerance to cold, intolerance to heat, unexplained weight gain, unexplained weight loss, others Psychiatric: denies: anxiety, bipolar disorder, depression, hopeless, panic disorder, schizophrenia, sleepless, suicidal, others All Other Systems: Reviewed and Negative Physical Exam General Appearance: No Apparent Distress, Normal HEENT: Normal ENT Inspection, PERRL/EOMI, Pharynx Normal, TMs Normal Neck: Full Range of Motion, Non-Tender, Normal, Normal Inspection Respiratory: Chest Non-Tender, Lungs Clear, No Accessory Muscle Use, No Respiratory Distress, Normal Breath Sounds Cardiovascular: No Edema, No JVD, No Murmur, No Gallop, Normal Peripheral Pulses, Regular Rate/Rhythm Breast Exam: Deferred Gastrointestinal: No Organomegaly, Non Tender, No Pulsatile Mass, Normal Bowel Sounds, Soft Genitalia: Deferred Pelvic: Deferred Rectal: Deferred Extremities: No calf tenderness, Normal capillary refill, Normal inspection, Normal range of motion, Non-tender, No pedal edema, Swelling, Tender, Other (Little finger is swollen tender discolored prominent insect bite could be a bee) Musculoskeletal : Apperance: Normal Neurologic: Alert, vice president compliance II-XII nml as Tested, No Motor Deficits, Normal Affect, Normal Mood, No Sensory Deficits Cerebellar Function: Normal Reflexes: Normal Skin: Dry, Normal Color, Warm Peripheral Pulses: 1+ carotid (R), 1+ carotid (L) Lymphatic: No Adenopathy Was a procedure done? Was a procedure done?: No Differential Diagnosis (INTG) Differential Diagnosis: Insect Envenomation, Puncture Wound Differential Diagnosis: N/A Differential Diagnosis: N/A Abscess: N/A Differential Diagnosis: Puncture Wound, N/A X-Ray, Labs, Meds, VS Vital Signs Date Time Temp Pulse Resp B/P (MAP) Pulse Ox O2 Delivery O2 Flow Rate FiO2 07/30/24 13:10 98.6 72 20 138/79 (98) 96 98.6 07/30/24 11:19 97.6 67 18 125/68 (87) 96 97.6 07/30/24 11:19 67 18 96 Room Air 07/30/24 09:33 97.7 92 20 138/69 (92) 97 97.7 Current Medications Medications (Trade) Dose Ordered Sig/Venkata Route Start Time Stop Time Status Last Admin Dexamethasone Sodium Phosphate (Decadron Injection) 4 mg ONCE ONCE IM 07/30/24 12:45 07/30/24 12:46 DC 07/30/24 13:14 Diphenhydramine HCl (Benadryl Injection) 25 mg ONCE ONCE IM 07/30/24 12:45 07/30/24 12:46 DC 07/30/24 13:14 X-Ray, Labs, Meds, VS Comment Course in the emergency department patient came in to the ER complaining of an insect bite to her right little finger which is swollen tender discolored and inflamed Patient will receive injection of Decadron and Benadryl and be observed Time of 1ST Reevaluation: 11:00 Reevaluation 1ST: Unchanged Time of 2ND Reevaluation: 12:52 Reevaluation 2ND: Unchanged Consultation: PCP Patient Education/Counseling: Diagnosis, Treatment, Prognosis, Need For Follow Up Family Education/Counseling: Diagnosis, Treatment, Prognosis, Need For Follow Up, No Family Present Departure 1 Departure Time of Disposition: 12:53 Impression: Primary Impression: Insect bite of little finger Disposition: 01 HOME / SELF CARE / HOMELESS Condition: Fair Additional Instructions: Keep the finger clean and dry e-Prescriptions Diphenhydramine Hcl (Benadryl Allergy) 25 Mg Cap 25 MG PO TID for 11 Days, #30 CAP Prov: VELIA QUEVEDO MD 07/30/24 Prednisone (Prednisone) 20 Mg Tab 20 MG PO BID for 5 Days, #10 MG Prov: VELIA QUEVEDO MD 07/30/24 Discharged With: Self Critical Care Note Critical Care Time?: No Stability Stability form required: No Heart Score Heart Score: Heart Score Response (Comments) Value History N/A 0 EKG N/A 0 Age 45-64 1 Risk Factors No known risk factors 0 Troponin N/A 0 Total 1 I personally scribed for VELIA QUEVEDO MD ([email or web address]) on 07/30/24 at 11:31. Electronically submitted by Jr Pike ([email or web address]). VELIA QUEVEDO MD July 30, 2024 11:31
[2024-07-30 13:10] VITALS: BP 138/79; PULSE 72; RESP 20; TEMP 98.6; O2SAT 96
[2024-07-30] MEDS: diphenhdrAMINE HCL 50 MG/1 ML VL IM ONE (13:14)
[2024-07-30] MEDS: DexAMETHasone SOD PHOS 4 MG/1ML SDV INJ IM ONE (13:14)
[2024-07-30] MEDS ORDERED: PRED20TA2 PO (13:18)
[2024-07-30] MEDS ORDERED: DIPH25CA66 PO (13:18)
== END 2024-07-30 14:38 | disposition home or self-care (01) ==
LOC: ER 08:51
DX: S60.467A Insect bite (nonvenomous) of left little finger, initial encounter (principal); I10 Essential (primary) hypertension; E11.9 Type 2 diabetes mellitus without complications; Z90.49 Acquired absence of other specified parts of digestive tract; Z90.710 Acquired absence of both cervix and uterus; Z79.84 Long term (current) use of oral hypoglycemic drugs; Z79.899 Other long term (current) drug therapy; W57.XXXA Bitten or stung by nonvenomous insect and other nonvenomous arthropods, initial encounter; Y93.89 Activity, other specified; Y92.89 Other specified places as the place of occurrence of the external cause; Y99.8 Other external cause status
CPT/HCPCS: 96372; 99284; J1200; J1100